=== PATIENT | male | born 1935 | race Hispanic/Latino ===

== ENCOUNTER 2016-06-18 06:11 | Day surgery (SDC) | payer MEDICARE ==
[2016-06-18 06:40] VITALS: BMI 23.3
--- NOTE | 2016-06-18 07:55 | CP.SDSHP ---
Same Day Surgery H & P - History Proposed Procedure: COLONSCOPY Pre-Op Diagnosis: SEE NOTES - Previous Medical/Surgical History Neuro: Backaches Misc: Other Pain: 6.Severe Pain - Allergies Allergies: Allergies No Known Allergies Allergy (Verified 05/23/16 10:12) - Physical Exam General Appearance: N Mental Status: Alert & Oriented x3 Neuro: WNL Heart: WNL Lungs: Other GI: WNL - {Optional Preform as Required} Breast: WNL Abdomen: Other Rectal: Other Integument: WNL : WNL Ortho: Other ENT: WNL - Impression Pt. Evaluated Today:Candidate for Anesthesia & Procedure: Yes - Date & Time Time: 07:55 Short Stay Discharge - Short Stay Discharge Admitting Diagnosis/Reason for Visit: RECTAL BLEEDING Disposition: HOME/ ROUTINE
[2016-06-18] MEDS ORDERED: Belladonna-Phenobarbital PO STA ×2 (07:56→09:07)
[2016-06-18] MEDS ORDERED: Pantoprazole 40 mg EC Tab PO STA ×2 (07:57→09:07)
[2016-06-19 15:49] VITALS: BP 106/75; PULSE 69; RESP 18; TEMP 97.4; O2SAT 100
== END 2016-06-18 09:15 | disposition home or self-care (01) ==
LOC: C.ENDO 06:11
PROVIDERS: ATTEND Specialist
DX: D12.4 Benign neoplasm of descending colon (principal); K57.30 Diverticulosis of large intestine without perforation or abscess without bleeding; K64.8 Other hemorrhoids; K62.5 Hemorrhage of anus and rectum; R10.84 Generalized abdominal pain; R19.5 Other fecal abnormalities; R19.4 Change in bowel habit

== ENCOUNTER 2017-02-08 14:34 | Inpatient (IN) | payer MEDICARE ==
[2017-02-08 14:45] VITALS: BMI 24.1
--- NOTE | 2017-02-08 16:19 | C.PDOC ---
History Of Present Illness Patient is an 81 y/o male who presents to the ED with complaints of left lower facial numbness and difficulty walking for the last 4 days. Patient reports that symptoms have improved since onset, but admits symptoms are similar to and unchanged from a prior stroke. Since stroke, patient reports walking off balance intermittently as it resolves shortly after onset. Patient notes left sided numbness has resolved since onset. Denies any other associated symptoms. L LOWER FACIAL NUMBNESS DIFFICULTY WALKING 4 DAYS AGO, NOW IMPROVED. PS "SIM TO WHEN I HAD A PRIOR STROKE". L SIDED NUMBNESS, NOW RESOLVED X 4 DAYS. PS W INTERMIT "WALKING OFF BALANCE" SINCE PRIOR STROKE. CURRENT SX UNCH FROM PRIOR. "I SOMETIMES WALK OFF BALANCE BUT THEN GOES AWAY". NO OTHER ASSOC SX EXAM NAD NEURO SEE NIH. UNABLE TO TANDEM WALK, BUT NO DEFICIT W FINGER/NOSE GAIT WNL REMAINDER NEG Chief Complaint (Nursing): Weakness/Neurological Deficit History Per: Patient History/Exam Limitations: no limitations Onset/Duration Of Symptoms: Days (4 days) Current Symptoms Are (Timing): Still Present Recent travel outside of the [place]: No Past Medical History Reviewed: Historical Data, Nursing Documentation, Vital Signs Vital Signs: Last Vital Signs Temp 97.6 F 02/08/17 14:47 Pulse 81 02/08/17 14:47 Resp 17 02/08/17 14:47 BP 159/60 H 02/08/17 14:47 Pulse Ox 97 02/08/17 17:58 - Medical History PMH: Anemia, Diverticulitis, HTN, Malignancy (Left Shoulder Lymphoma) Denies: Chronic Kidney Disease Surgical History: Cholecystectomy - [facility] Procedures ESOPHAGOGASTRODUODENOSCOPY [EGD] W/CLOSED BIOPSY (04/20/13) FLUOROSCOPY OF GALLBLADDER USING LOW OSMOLAR CONTRAST (04/18/16) ING HERNIA REP-GRAFT NOS (09/26/12) OTHER ENDOSCOPY OF SM INTEST (08/27/14) PACKED CELL TRANSFUSION (09/26/12) RESECTION OF GALLBLADDER, PERCUTANEOUS ENDOSCOPIC APPROACH (04/18/16) Family History: States: Unknown Family Hx - Social History Hx Tobacco Use: No Hx Alcohol Use: Yes Hx Substance Use: No - Immunization History Hx Tetanus Toxoid Vaccination: No Hx Influenza Vaccination: No Hx Pneumococcal Vaccination: No Review Of Systems Neurological: Positive for: Numbness (left lower side of face, has since resolved), Incoordination (difficulty walking) Physical Exam - Physical Exam Appears: No Acute Distress Oral Mucosa: Moist Chest: Symmetrical Cardiovascular: Rhythm Regular, No Murmur Respiratory: Normal Breath Sounds, No Rales, No Rhonchi, No Wheezing Gastrointestinal/Abdominal: Soft, No Tenderness Neurological/Psych: Other (no deficit with finger/nose; unable to tandem walk. See NIH. ) Gait: Other (within normal limits) ED Course And Treatment - Laboratory Results Result Diagrams: 02/08/17 16:37 02/08/17 16:37 ECG: Interpreted By Ak ECG Rhythm: Sinus Rhythm (normal) ECG Interpretation: Abnormal Rate From EC (bpm) O2 Sat by Pulse Oximetry: 97 - Radiology CXR: Interpreted by Ak CXR Interpretation: Yes: No Acute Disease - CT Scan/US Head Other Rad Studies (CT/US): Interpreted By Ak CT/US Interpretation: IMPRESSION: 1. Chronic microvascular ischemic changes. 2. Mild cerebellar atrophy. 3. Mucosal thickening of the ethmoid air cells. If focal neurological deficit persists, consider MRI. - Physician Consult Information Time Consulting Physician Contacted: 17:40 Physician Contacted: Nelli Robledo NIHSS Stroke Scale - Date/Time Evaluation Performed Date Performed: 02/08/17 Time Performed: 16:16 When Was NIHSS Performed: Baseline - How Severe is the Stroke Level of Consciousness: 0=Alert LOC to Questions: 0=Both comments correct LOC to commands: 0=Obeys both correctly Best Gaze: 0=Normal Visual: 0=No visual loss Facial: 0=Normal Motor Arm - Left: 0=No drift Motor Arm - Right: 0=No drift Motor Leg - Left: 0=No drift Motor Leg - Right: 0=No drift Limb Ataxia: 0=Absent Sensory: 0=Normal Best Language: 0=No aphasia Dysarthia: 0=Normal articulation Extinction & Inattention (Neglect): 0=Normal, no object Score: 0 Progress - Re-Evaluation Re-evaluation Note: 02/08/17 17:56 D/W DR ROBLEDO C/F PMD WILL ADMIT NO RECUR SX SINCE PRIOR EVAL VSS - Data Reviewed Data Reviewed: Lab, Diagnostic imaging, EKG, Old records Medical Decision Making Medical Decision Making: Plan: * EKG * CT head * CXR * blood work Disposition Counseled Patient/Family Regarding: Studies Performed, Diagnosis - Disposition Disposition: HOSPITALIZED Disposition Time: 17:58 Condition: STABLE Forms: [facility] (Palestinian) - Clinical Impression Clinical Impression: TIA (transient ischemic attack) - Scribe Statement The provider has reviewed the documentation as recorded by the Scribe Jia Rankin All medical record entries made by the Scribe were at my direction and personally dictated by me. I have reviewed the chart and agree that the record accurately reflects my personal performance of the history, physical exam, medical decision making, and the department course for this patient. I have also personally directed, reviewed, and agree with the discharge instructions and disposition. Decision To Admit - Pt Status Changed To: Hospital Disposition Of: Observation - . Bed Request Type: Telemetry Admitting Physician: Nelli Robledo Patient Diagnosis: TIA (transient ischemic attack)
[2017-02-08 16:40] LABS: BASO % 0.3 % (0.0-2.0); EOS % 0.6 % (0.0-4.0); HEMATOCRIT 38.6 % (35.0-51.0); LYMPH # 0.9 K/uL (1.0-4.3); LYMPH % 11.7 % (20.0-40.0); MEAN CELL VOLUME 104.4 fL (80.0-94.0); MEAN CORPUSCULAR HEMOGLOBIN 34.4 pg (27.0-31.0); MEAN PLATELET VOLUME 9.6 fL (7.2-11.7); MONO # 0.6 K/uL (0.0-0.8); MONO % 8.4 % (0.0-10.0); WHITE BLOOD COUNT 7.3 K/uL (4.8-10.8)
[2017-02-08 16:56] LABS: BLOOD UREA NITROGEN 21 mg/dL (9-20); CALCIUM 9.2 mg/dl (8.6-10.4); CARBON DIOXIDE 24 mmol/L (22-30); CHLORIDE 98 mmol/L (98-107); GFR AFRICAN-AMERICAN > 60; GLUCOSE,RANDOM 81 mg/dL (75-110); POTASSIUM 4.1 mmol/L (3.6-5.2); SODIUM 135 mmol/L (132-148)
--- NOTE | 2017-02-08 17:13 | CT ---
PROCEDURE: CT HEAD WITHOUT CONTRAST. HISTORY: Left facial numbness. Unsteady gait. COMPARISON: 08/27/2014 TECHNIQUE: Axial computed tomography images were obtained through the head/brain without intravenous contrast. Radiation dose: Total exam DLP = 762 mGy-cm. This CT exam was performed using one or more of the following dose reduction techniques: Automated exposure control, adjustment of the mA and/or kV according to patient size, and/or use of iterative reconstruction technique. FINDINGS: HEMORRHAGE: No intracranial hemorrhage. BRAIN: No mass effect or edema. Scattered focal lucencies in the subcortical and periventricular white matter suggestive for chronic microvascular ischemic change. Mild cerebellar atrophy. VENTRICLES: Unremarkable. No hydrocephalus. CALVARIUM: Unremarkable. PARANASAL SINUSES: Mucosal thickening of the ethmoid air cells. MASTOID AIR CELLS: Unremarkable as visualized. No inflammatory changes. OTHER FINDINGS: None. IMPRESSION: Chronic microvascular ischemic changes. Mild cerebellar atrophy. Mucosal thickening of the ethmoid air cells. If focal neurologic deficit persists, consider MRI.
--- NOTE | 2017-02-08 17:51 | RAD ---
HISTORY: Left facial numbness. COMPARISON: 04/18/2016 TECHNIQUE: Chest PA and lateral FINDINGS: LUNGS: Prominent patchy increased markings at the left lung base laterally may represent prominent epicardial fat pad versus mild atelectasis. Diffuse increased interstitial lung markings. Right hilar prominence. Upper lobe granulomatous changes. Right chest wall port with tip extending into the right atrium. Rounded density at the proximal aspect of the port in the right upper to mid lung zone is likely related to device as opposed to a nodular density within the lungs. Clinical correlation. PLEURA: No significant pleural effusion identified. No pneumothorax apparent. CARDIOVASCULAR: Normal. OSSEOUS STRUCTURES: Deformity of the left clavicle. Degenerative changes in the spine. VISUALIZED UPPER ABDOMEN: Normal. OTHER FINDINGS: None. IMPRESSION: Prominent patchy increased markings at the left lung base laterally may represent prominent epicardial fat pad versus mild atelectasis. Diffuse increased interstitial lung markings. Right hilar prominence. Upper lobe granulomatous changes. Right chest wall port with tip extending into the right atrium. Rounded density at the proximal aspect of the port in the right upper to mid lung zone is likely related to device as opposed to a nodular density within the lungs. Clinical correlation.
--- NOTE | 2017-02-08 19:52 | CP.PCM.HP ---
History of Present Illness - History of Present Illness History of Present Illness: Patient is an 81 y/o male who presents to the ED with complaints of left lower facial numbness and difficulty walking for the last 4 days. Patient reports that symptoms have improved since onset, but admits symptoms are similar to and unchanged from a prior stroke. Since stroke, patient reports walking off balance intermittently as it resolves shortly after onset. Patient notes left sided numbness has resolved since onset. PT HAS PMD , AND DID NOT SEEK MEDICAL ADVICE IN ER NEURO W/U WAS NEG Present on Admission - Present on Admission Any Indicators Present on Admission: No Review of Systems - Constitutional Constitutional: absent: As Per HPI, Anorexia, Chills, Daytime Sleepiness, Excessive Sweating, Fatigue, Fever, Frequent Falls, Headache, Increased Appetite , Lethargy, Malaise, Night Sweats, Snoring, Sleep Apnea, Weight Gain, Weight Loss, Weakness, Other - EENT Eyes: absent: As Per HPI, Blind Spots, Blurred Vision, Change in Vision, Decreased Night Vision, Diplopia, Discharge, Dry Eye, Exophthalmos, Floaters, Irritation, Itchy Eyes, Loss of Peripheral Vision, Pain, Photophobia, Requires Corrective Lenses, Sees Flashes, Spots in Vision, Tunnel Vision, Other Visual Disturbances, Loss of Vision, Other Ears: absent: As Per HPI, Decreased Hearing, Ear Discharge, Ear Pain, Tinnitus, Abnormal Hearing, Disequilibrium, Dizziness, Other Nose/Mouth/Throat: absent: As Per HPI, Epistaxis, Nasal Congestion, Nasal Discharge, Nasal Obstruction, Nasal Trauma, Nose Pain, Post Nasal Drip, Sinus Pain, Sinus Pressure, Bleeding Gums, Change in Voice, Dental Pain, Dry Mouth, Dysphagia, Halitosis, Hoarsness, Lip Swelling, Mouth Lesions, Mouth Pain, Odynophagia, Sore Throat, Throat Swelling, Tongue Swelling, Facial Pain, Neck Pain, Neck Mass, Other - Cardiovascular Cardiovascular: absent: As Per HPI, Acrocyanosis, Chest Pain, Chest Pain at Rest , Chest Pain with Activity, Claudication, Diaphoresis, Dyspnea, Dyspnea on Exertion, Edema, Irregular Heart Rhythm, Pain Radiating to Arm/Neck/Jaw, Leg Edema, Leg Ulcers, Lightheadedness, Orthopnea, Palpitations, Paroxysmal Nocturnal Dyspnea, Pedal Edema, Radiating Pain, Rapid Heart Rate, Slow Heart Rate, Syncope, Other - Respiratory Respiratory: absent: As Per HPI, Cough, Dyspnea, Hemoptysis, Dyspnea on Exertion , Wheezing, Snoring, Stridor, Pain on Inspiration, Chest Congestion, Excessive Mucous Production, Change in Mucous Color, Pain with Coughing, Other - Gastrointestinal Gastrointestinal: absent: As Per HPI, Abdominal Pain, Belching, Bloating, Change in Bowel Habits, Change in Stool Character, Coffee Ground Emesis, Constipation, Cramping, Diarrhea, Dyspepsia, Dysphagia, Early Satiety, Excessive Flatus, Fecal Incontinence, Heartburn, Hematemesis, Hematochezia, Loose Stools, Melena, Nausea, Odynophagia, Temesmus, Vomiting, Other - Genitourinary Genitourinary: absent: As Per HPI, Change in Urinary Stream, Difficulty Urinating, Dysuria, Flank Pain, Hematuria, Pyuria, Nocturia, Urinary Incontinence, Urinary Frequency, Urinary Hesitance, Urinary Urgency, Voiding Freq/Small Amts, Freq UTI, Hx Renal/Bladder Calculi, Hx /Renal Surgery, Bladder Distension, Other - Musculoskeletal Musculoskeletal: absent: As Per HPI, Abnormal Gait, Arthralgias, Atrophy, Back Pain, Deformity, Joint Swelling, Limited Range of Motion, Loss of Height, Muscle Cramps, Muscle Weakness, Myalgias, Neck Pain, Numbness, Radiating Pain into Limb, Stiffness, Tingling, Other - Neurological Neurological: Numbness, Lack of Coordination. absent: As Per HPI, Abnormal Gait , Abnormal Hearing, Abnormal Movements, Abnormal Speech, Behavioral Changes, Burning Sensations, Confusion, Convulsions, Disequilibrium, Dizziness, Focal Weakness, Frequent Falls, Headaches, Loss of Vision, Memory Loss, Paresthesias, Radicular Pain, Restless Legs, Sensory Deficit, Syncope, Tingling, Tremor, Vertigo, Weakness, Other Visual Disturbances, Other - Endocrine Endocrine: absent: As Per HPI, Change in Body Appearance, Change in Libido, Cold Intolorance, Deepening of Voice, Excessive Sweating, Fatigue, Flushing, Heat Intolorance, Increase in Ring/Shoe/Hat Size, Palpitations, Polydipsia, Polyphagia, Polyuria, Other Past Patient History - Infectious Disease Hx of Infectious Diseases: None - Tetanus Immunizations Tetanus Immunization: Unknown - Past Medical History & Family History Past Medical History?: Yes - Past Social History Smoking Status: Former Smoker - CARDIAC Hx Hypertension: Yes - PULMONARY Hx Respiratory Disorders: No - NEUROLOGICAL Hx Neurological Disorder: Yes HX Cerebrovascular Accident: Yes (2014) - HEENT Hx HEENT Problems: No - RENAL Hx Chronic Kidney Disease: No - ENDOCRINE/METABOLIC Hx Endocrine Disorders: No - HEMATOLOGICAL/ONCOLOGICAL Hx Anemia: Yes - INTEGUMENTARY Hx Dermatological Problems: No - MUSCULOSKELETAL/RHEUMATOLOGICAL Hx Musculoskeletal Disorders: No - GASTROINTESTINAL Hx Diverticulitis: Yes - GENITOURINARY/GYNECOLOGICAL Hx Genitourinary Disorders: Yes Hx Prostate Cancer: Yes (WITH SEED IMPLANTS) - PSYCHIATRIC Hx Substance Use: No - SURGICAL HISTORY Hx Cholecystectomy: Yes - ANESTHESIA Hx Anesthesia: Yes Hx Anesthesia Reactions: No Hx Malignant Hyperthermia: No Meds Allergies/Adverse Reactions: Allergies Allergy/AdvReac Type Severity Reaction Status Date / Time No Known Allergies Allergy Verified 02/08/17 14:42 Physical Exam - Head Exam Head Exam: ATRAUMATIC, NORMAL INSPECTION, NORMOCEPHALIC - Eye Exam Eye Exam: EOMI, Normal appearance, PERRL Pupil Exam: NORMAL ACCOMODATION, PERRL - ENT Exam ENT Exam: Mucous Membranes Moist, Normal Exam - Neck Exam Neck exam: Positive for: Normal Inspection - Respiratory Exam Respiratory Exam: Clear to Auscultation Bilateral, NORMAL BREATHING PATTERN - Cardiovascular Exam Cardiovascular Exam: REGULAR RHYTHM - GI/Abdominal Exam GI & Abdominal Exam: Normal Bowel Sounds, Soft. absent: Tenderness - Extremities Exam Extremities exam: Positive for: normal inspection - Back Exam Back exam: NORMAL INSPECTION - Neurological Exam Neurological exam: Abnormal Gait, Alert, CN II-XII Intact, Oriented x3, Reflexes Normal Results - Vital Signs Recent Vital Signs: Last Vital Signs Temp 97.8 F 02/08/17 18:19 Pulse 73 02/08/17 18:19 Resp 16 02/08/17 18:19 BP 139/84 02/08/17 18:19 Pulse Ox 97 02/08/17 18:19 - Labs Result Diagrams: 02/09/17 08:44 02/09/17 08:44 Labs: Laboratory Results - last 24 hr 02/08/17 02/08/17 16:37 16:37 WBC 7.3 RBC 3.70 L Hgb 12.7 Hct 38.6 MCV 104.4 H MCH 34.4 H MCHC 33.0 RDW 15.0 H Plt Count 167 MPV 9.6 Neut % (Auto) 79.0 H Lymph % (Auto) 11.7 L Luce % (Auto) 8.4 Eos % (Auto) 0.6 Baso % (Auto) 0.3 Neut # 5.8 Lymph # 0.9 L Luce # 0.6 Eos # 0.0 Baso # 0.0 Sodium 135 Potassium 4.1 Chloride 98 Carbon Dioxide 24 Anion Gap 17 BUN 21 H Creatinine 1.2 Est GFR ( Amer) > 60 Est GFR (Non-Af Amer) 58 Random Glucose 81 Calcium 9.2 Assessment & Plan (1) TIA (transient ischemic attack) Status: Acute Comment: NEURO EVAL. ?MRI (2) Ataxia Status: Chronic (3) HTN (hypertension) Status: Chronic (4) Hodgkin disease Status: Chronic
[2017-02-09 08:51] LABS: BASO # 0.1 K/uL (0.0-0.2); BASO % 1.5 % (0.0-2.0); EOS # 0.2 K/uL (0.0-0.7); EOS % 4.2 % (0.0-4.0); HEMATOCRIT 40.2 % (35.0-51.0); LYMPH % 19.4 % (20.0-40.0); MEAN CELL VOLUME 105.4 fL (80.0-94.0); MEAN CORPUSCULAR HGB CONC 32.2 g/dL (33.0-37.0); MEAN PLATELET VOLUME 9.3 fL (7.2-11.7); MONO # 0.6 K/uL (0.0-0.8); MONO % 11.5 % (0.0-10.0); NRBC % 0.1 % (0.0-2.0); RED CELL DISTRIBUTION WIDTH 15.2 % (11.5-14.5); WHITE BLOOD COUNT 5.2 K/uL (4.8-10.8)
[2017-02-09 09:07] LABS: ALB/GLOB RATIO 1.9 (1.0-2.1); ALKALINE PHOSPHATASE 71 U/L (38-126); ALT/SGPT 28 U/L (21-72); AST/SGOT 29 U/L (17-59); BILIRUBIN,TOTAL 1.1 mg/dL (0.2-1.3); BLOOD UREA NITROGEN 24 mg/dL (9-20); CALCIUM 9.1 mg/dl (8.6-10.4); CARBON DIOXIDE 26 mmol/L (22-30); CHLORIDE 98 mmol/L (98-107); GFR AFRICAN-AMERICAN > 60; GLUCOSE,RANDOM 124 mg/dL (75-110); POTASSIUM 3.9 mmol/L (3.6-5.2); SODIUM 137 mmol/L (132-148); TOTAL PROTEIN 6.4 g/dL (6.3-8.3)
[2017-02-09] MEDS: diltiaZEM 240 mg/24 Hours CD Cap PO SCH (09:09)
--- NOTE | 2017-02-09 14:51 | CP.PCM.PN ---
Subjective - Date & Time of Evaluation Date of Evaluation: 02/09/17 Time of Evaluation: 14:50 - Subjective Subjective: NO NEW FINDINGS Objective - Vital Signs/Intake and Output Vital Signs (last 24 hours): Temp Pulse Resp BP Pulse Ox 97.7 F 83 20 146/83 99 02/09/17 07:00 02/09/17 07:00 02/09/17 07:00 02/09/17 07:00 02/09/17 07:00 - Medications Medications: Current Medications Aspirin (Aspirin) 325 mg PO DAILY [facility] Last Admin: 02/09/17 09:10 Dose: 325 mg Diltiazem HCl (Cardizem Cd) 240 mg PO DAILY [facility] Last Admin: 02/09/17 09:09 Dose: 240 mg Famotidine (Pepcid) 20 mg PO DAILY [facility] Last Admin: 02/09/17 09:10 Dose: 20 mg Pneumococcal Polyvalent Vaccine (Pneumovax 23 Vaccine) 0.5 ml IM .ONCE ONE Stop: 02/11/17 10:01 - Labs Labs: 02/09/17 08:44 02/09/17 08:44 Assessment and Plan (1) TIA (transient ischemic attack) Status: Acute (2) Ataxia Status: Chronic (3) HTN (hypertension) Status: Chronic (4) Hodgkin disease Status: Chronic
--- NOTE | 2017-02-09 17:29 | CP.PCM.CON ---
History of Present Illness - History of Present Illness History of Present Illness: Mr. Silva is an 81-year-old man with a past medical history of hypertension and skin cancer who states that he had a stroke in the past that had resulted in balance difficulty and some left sided paresthesias, but at baseline he is back to normal. The patient presented to the ED after a 4 day duration of left facial numbness and feeling that whenever he stands up and tries to ambulate, he leans over to the right. He denied headache, visual changes, weakness, other sensory deficits, chest pain, SOB, or abdominal pain. Review of Systems - Review of Systems All systems: reviewed and no additional remarkable complaints except Past Patient History - Infectious Disease Hx of Infectious Diseases: None - Tetanus Immunizations Tetanus Immunization: Unknown - Past Medical History & Family History Past Medical History?: Yes - Past Social History Smoking Status: Former Smoker - CARDIAC Hx Hypertension: Yes - PULMONARY Hx Respiratory Disorders: No - NEUROLOGICAL Hx Neurological Disorder: Yes HX Cerebrovascular Accident: Yes (2014) - HEENT Hx HEENT Problems: No - RENAL Hx Chronic Kidney Disease: No - ENDOCRINE/METABOLIC Hx Endocrine Disorders: No - HEMATOLOGICAL/ONCOLOGICAL Hx Anemia: Yes - INTEGUMENTARY Hx Dermatological Problems: No - MUSCULOSKELETAL/RHEUMATOLOGICAL Hx Musculoskeletal Disorders: No - GASTROINTESTINAL Hx Diverticulitis: Yes - GENITOURINARY/GYNECOLOGICAL Hx Genitourinary Disorders: Yes Hx Prostate Cancer: Yes (WITH SEED IMPLANTS) - PSYCHIATRIC Hx Substance Use: No - SURGICAL HISTORY Hx Cholecystectomy: Yes - ANESTHESIA Hx Anesthesia: Yes Hx Anesthesia Reactions: No Hx Malignant Hyperthermia: No Meds Allergies/Adverse Reactions: Allergies Allergy/AdvReac Type Severity Reaction Status Date / Time No Known Allergies Allergy Verified 02/08/17 14:42 - Medications Medications: Current Medications Aspirin (Aspirin) 325 mg PO DAILY [facility] Last Admin: 02/09/17 09:10 Dose: 325 mg Diltiazem HCl (Cardizem Cd) 240 mg PO DAILY [facility] Last Admin: 02/09/17 09:09 Dose: 240 mg Famotidine (Pepcid) 20 mg PO DAILY [facility] Last Admin: 02/09/17 09:10 Dose: 20 mg Pneumococcal Polyvalent Vaccine (Pneumovax 23 Vaccine) 0.5 ml IM .ONCE ONE Stop: 02/11/17 10:01 Physical Exam - Constitutional Appears: Cachectic - Head Exam Head Exam: ATRAUMATIC, NORMAL INSPECTION, NORMOCEPHALIC - Eye Exam Eye Exam: EOMI, Normal appearance, Nystagmus, PERRL Additional comments: Nystagmus on RLG - ENT Exam ENT Exam: Mucous Membranes Moist, Normal Exam - Neck Exam Neck exam: Positive for: Normal Inspection - Respiratory Exam Respiratory Exam: Clear to Auscultation Bilateral, NORMAL BREATHING PATTERN - Cardiovascular Exam Cardiovascular Exam: REGULAR RHYTHM, +S1, +S2 - GI/Abdominal Exam GI & Abdominal Exam: Normal Bowel Sounds, Soft. absent: Tenderness - Rectal Exam Rectal Exam: Deferred - Extremities Exam Extremities exam: Positive for: normal inspection - Back Exam Back exam: NORMAL INSPECTION - Neurological Exam Neurological exam: Abnormal Gait, Alert, CN II-XII Intact, Oriented x3, Reflexes Normal Additional comments: NIHSS = 1 for left facial numbness - Psychiatric Exam Psychiatric exam: Normal Affect, Normal Mood - Skin Skin Exam: Dry, Intact, Normal Color, Warm Results - Vital Signs Recent Vital Signs: Last Vital Signs Temp 97.7 F 02/09/17 07:00 Pulse 83 02/09/17 07:00 Resp 20 02/09/17 07:00 BP 146/83 02/09/17 07:00 Pulse Ox 99 02/09/17 07:00 - Labs Result Diagrams: 02/09/17 08:44 02/09/17 08:44 Labs: Laboratory Results - last 24 hr 02/09/17 02/09/17 08:44 08:44 WBC 5.2 RBC 3.82 L Hgb 13.0 Hct 40.2 MCV 105.4 H MCH 34.0 H MCHC 32.2 L RDW 15.2 H Plt Count 163 MPV 9.3 Neut % (Auto) 63.4 Lymph % (Auto) 19.4 L [place] % (Auto) 11.5 H Eos % (Auto) 4.2 H Baso % (Auto) 1.5 Neut # 3.3 Lymph # 1.0 [place] # 0.6 Eos # 0.2 Baso # 0.1 Sodium 137 Potassium 3.9 Chloride 98 Carbon Dioxide 26 Anion Gap 17 BUN 24 H Creatinine 1.2 Est GFR ( Amer) > 60 Est GFR (Non-Af Amer) 58 Random Glucose 124 H Calcium 9.1 Total Bilirubin 1.1 AST 29 ALT 28 Alkaline Phosphatase 71 Total Protein 6.4 Albumin 4.2 Globulin 2.2 Albumin/Globulin Ratio 1.9 - Imaging and Cardiology CT scan - head Status: Image reviewed by me, Report reviewed by me (No acute findings. ) Assessment & Plan (1) TIA (transient ischemic attack) Assessment and Plan: Symptoms of facial numbness are chronic and he has occasional balance difficulty. These symptoms along with a CT scan that does not show a stroke ( symptoms have been around for 4 days now and should show on CT by now), the patient likely has small vessel disease or may have another underlying brain lesion that may not be vascular in origin. However, I recommend the followin. Telemetry 2. MRI of the brain with and without contrast 3. Aspirin 81 mg daily 4. Echocardiogram with bubble study 5. PT/OT eval and treatment 6. Check lipid panel, HbA1c, B12, folate, TSH/T3/T4, and vitamin D levels 7. Fluids with NS at 100 mL/hr 8. Permissive hypertension for the next 24 hours 9. DVT Px 10. Case management consult Thank you. Status: Acute Priority: High
[2017-02-09 19:12] LABS: CHOLESTEROL 173 mg/dL (0-199)
--- NOTE | 2017-02-10 10:31 | CP.PCM.PN ---
Subjective - Date & Time of Evaluation Date of Evaluation: 02/10/17 Time of Evaluation: 10:28 - Subjective Subjective: Mr. Silva was seen and examined at the bedside. He is alert, oriented in all spheres. He denies any headache, dizziness, lightheadedness, nausea, or vomiting. He claims of feeling minimal nausea over the weekend, with no vomiting noted. There was no untoward events overnight. Objective - Vital Signs/Intake and Output Vital Signs (last 24 hours): Temp Pulse Resp BP Pulse Ox 97.6 F 76 18 133/82 96 02/10/17 07:00 02/10/17 08:25 02/10/17 07:00 02/10/17 07:00 02/10/17 07:00 Intake and Output: 02/10/17 02/10/17 06:59 18:59 Intake Total 240 Balance 240 - Medications Medications: Current Medications Aspirin (Ecotrin) 81 mg PO DAILY [facility] Last Admin: 02/09/17 18:34 Dose: 81 mg Diltiazem HCl (Cardizem Cd) 240 mg PO DAILY [facility] Last Admin: 02/09/17 09:09 Dose: 240 mg Enoxaparin Sodium (Lovenox) 40 mg SC DAILY [facility] Famotidine (Pepcid) 20 mg PO DAILY [facility] Last Admin: 02/09/17 09:10 Dose: 20 mg Pneumococcal Polyvalent Vaccine (Pneumovax 23 Vaccine) 0.5 ml IM .ONCE ONE Stop: 02/11/17 10:01 Rosuvastatin Calcium (Crestor) 5 mg PO [facility] Last Admin: 02/09/17 21:58 Dose: 5 mg - Labs Labs: 02/09/17 08:44 02/09/17 08:44 - Constitutional Appears: No Acute Distress - Head Exam Head Exam: ATRAUMATIC - Neurological Exam Neurological Exam: Alert, Awake, CN II-XII Intact, Oriented x3 Neuro motor strength exam: Left Upper Extremity: 5, Right Upper Extremity: 5, Left Lower Extremity: 5, Right Lower Extremity: 5 Additional comments: He is alert, oriented in all spheres, able to follow simplke commands. Sensation remains intact. Assessment and Plan (1) TIA (transient ischemic attack) Assessment & Plan: Case discussed with Dr. Leach, follow up MRI of the brain without contrast and echocardiogram with bubble study. Recommends PT/ OT eval and treat. Status: Acute
[2017-02-10] MEDS: diltiaZEM 240 mg/24 Hours CD Cap PO SCH (10:48)
[2017-02-10] MEDS: Enoxaparin 40 mg Syringe SC SCH (10:48)
--- NOTE | 2017-02-10 12:09 | VASCLAB ---
PROCEDURE: HISTORY: tia COMPARISON: None available. TECHNIQUE: Grayscale and duplex Doppler evaluation of the cervical carotid and vertebral arteries were performed. The common carotid, carotid bifurcations and cervical Internal Carotid Artery (ICA) and proximal External Carotid Artery (ECA) were evaluated. The vertebral arteries were evaluated for gross patency and flow direction. Report prepared by Cam Tomas, BS, RVT FINDINGS: RIGHT CAROTID ARTERIES: 1. Common Carotid Artery: No significant focal plaque formation of the right common carotid artery. Maximum Peak Systolic velocity: 62 cm/sec: End-diastolic velocity 14 cm/sec. 2. Carotid Bifurcation: plaque formation. Maximum Peak Systolic velocity: 48 cm/sec: End-diastolic velocity 12 cm/sec. 3. Internal Carotid Artery: Plaque description: 3.1. Proximal Segment: Peak systolic velocity 59 cm/sec: End-diastolic velocity 17 cm/sec - % stenosis 0-15% 3.2. Middle Segment: Peak systolic velocity 95 cm/sec: End-diastolic velocity 29 cm/sec - % stenosis 0-15% 3.3. Distal Segment: Peak systolic velocity 89 cm/sec: End-diastolic velocity 25 cm/sec - % stenosis 0-15% 4. External Carotid Artery: No significant focal plaque formation. Peak systolic velocity 68 cm/sec 5. ICA/CCA Ratio: 1.5 LEFT CAROTID ARTERIES: 1. Common Carotid Artery: No significant focal plaque formation of the left common carotid artery. Maximum Peak Systolic velocity: 79 cm/sec: End-diastolic velocity 18 cm/sec. 2. Carotid Bifurcation: plaque formation. Maximum Peak Systolic velocity: 112 cm/sec: End-diastolic velocity 7 cm/sec. 3. Internal Carotid Artery: Plaque description: 3.1. Proximal Segment: Peak systolic velocity 71 cm/sec: End-diastolic velocity 17 cm/sec - % stenosis 0-15% 3.2. Middle Segment: Peak systolic velocity 106 cm/sec: End-diastolic velocity 24 cm/sec - % stenosis 0-15% 3.3. Distal Segment: Peak systolic velocity 53 cm/sec: End-diastolic velocity 13 cm/sec - % stenosis 0-15% 4. External Carotid Artery: No significant focal plaque formation. Peak systolic velocity 112 cm/sec 5. ICA/CCA Ratio: 1.3 VERTEBRAL ARTERIES: 1. Right Vertebral Artery: The right vertebral artery flow direction is antegrade. 2. Left Vertebral Artery: The left vertebral artery flow direction is antegrade. OTHER FINDINGS: 1. Right Brachial Blood pressure: 160 mmHg. 2. Left Brachial Blood pressure: 160 mmHg. IMPRESSION: RIGHT: Duplex scan does not suggest hemodynamically significant stenosis of the right extracranial carotid arteries. LEFT: Duplex scan does not suggest hemodynamically significant stenosis of the left extracranial carotid arteries.
--- NOTE | 2017-02-10 13:57 | CP.PCM.PN ---
Subjective - Date & Time of Evaluation Date of Evaluation: 02/10/17 Time of Evaluation: 13:56 - Subjective Subjective: CHIEF COMPLAINTS TODAY : NO NEW SYMPTOMS ROS. HEENT : N. Resp : No cough, wheezing ,pleuritic CP ,or hemoptysis Cardio : No anginal CP, PND, orthopnea, palpitation GI : No abd.pain, n/v ,diarrhea or GI bleeding . CAR SALESMAN : No headache, vertigo, focal deficit. Musculoskel : No joint swelling , Derm : No rash Psych : Normal affect. Ext : No swelling ,calf pain PE. Pt. is alert awake in no distress. V.S As noted in the chart Head ,ear nose,throat and eyes : Normal. Neck : Supple with normal carotids. Lungs: Clear air entry. Heart : S1 & S2 normal with S4. No murmur. Abd : Soft non tender with normal bowel sounds. Neuro : Moves all ext. with no localized deficit. Ext : No edema with intact pulses.Non tender calves Derm : No rashes or decubitus ulcer. LABS/RADIOLOGY: ASSESSMENT/PLAN : CHECK MRI CHECK ECHO WITH BUBBLE STUDY Objective - Vital Signs/Intake and Output Vital Signs (last 24 hours): Temp Pulse Resp BP Pulse Ox 97.6 F 76 18 133/82 96 02/10/17 07:00 02/10/17 08:25 02/10/17 07:00 02/10/17 07:00 02/10/17 07:00 Intake and Output: 02/10/17 02/10/17 11:59 23:59 Intake Total 240 Balance 240 - Medications Medications: Current Medications Aspirin (Ecotrin) 81 mg PO DAILY [facility] Last Admin: 02/10/17 10:48 Dose: 81 mg Diltiazem HCl (Cardizem Cd) 240 mg PO DAILY [facility] Last Admin: 02/10/17 10:48 Dose: 240 mg Enoxaparin Sodium (Lovenox) 40 mg SC DAILY [facility] Last Admin: 02/10/17 10:48 Dose: 40 mg Famotidine (Pepcid) 20 mg PO DAILY [facility] Last Admin: 02/10/17 10:48 Dose: 20 mg Pneumococcal Polyvalent Vaccine (Pneumovax 23 Vaccine) 0.5 ml IM .ONCE ONE Stop: 02/11/17 10:01 Rosuvastatin Calcium (Crestor) 5 mg PO [facility] Last Admin: 02/09/17 21:58 Dose: 5 mg - Labs Labs: 02/09/17 08:44 02/09/17 08:44 Assessment and Plan (1) TIA (transient ischemic attack) Status: Acute (2) Ataxia Status: Chronic (3) HTN (hypertension) Status: Chronic (4) Hodgkin disease Status: Chronic
[2017-02-10] MEDS ORDERED: Gadodiamide 287 MG/ML VIAL (15ML) IV ONE (16:28)
--- NOTE | 2017-02-10 17:19 | MRI ---
PROCEDURE: MRI BRAIN WITH AND WITHOUT CONTRAST HISTORY: rule out stroke or mets COMPARISON: 06/06/2015 TECHNIQUE: Multiplanar, multisequence MR images of the brain were obtained with and without intravenous contrast enhancement. 12 cc of Omniscan FINDINGS: HEMORRHAGE: None DWI: No evidence of an acute or early subacute infarction. BRAIN PARENCHYMA: No mass,mass effect or edema. Mild chronic microvascular changes in the periventricular white matter. ENHANCEMENT: No abnormal intracranial enhancement. VENTRICLES: Unremarkable. No hydrocephalus. CRANIUM: Unremarkable. ORBITS: Grossly unremarkable. PARANASAL SINUSES/MASTOIDS: Clear VASCULAR SYSTEM: Skull base flow voids intact. OTHER FINDINGS: None . IMPRESSION: No acute intracranial findings
--- NOTE | 2017-02-10 17:27 | MRI ---
PROCEDURE: MR Angiography of the neck without contrast HISTORY: TIA COMPARISON: None available. TECHNIQUE: 3D [id number] angiography of the neck was performed. Rotating maximum intensity projection images of the cervical carotid and vertebral arteries were generated. The origins of the common carotid arteries were not visualized, which is a limitation inherent to the non-contrast time of flight technique. FINDINGS: RIGHT CAROTID ARTERIES: Common Carotid Artery: Normal. Carotid Bifurcation: Normal. Internal Carotid Artery:Normal. External Carotid Artery (proximal branches): Normal. LEFT CAROTID ARTERIES: Common Carotid Artery: Normal. Carotid Bifurcation: Normal. Internal Carotid Artery:Normal. External Carotid Artery (proximal branches): Normal. VERTEBRAL ARTERIES: Right Vertebral Artery: There is a dominant large caliber right vertebral. Left Vertebral Artery: Small thin left vertebral with diminished flow OTHER FINDINGS: None. IMPRESSION: Dominant right vertebral. Small caliber left vertebral. No evidence of carotid stenosis
--- NOTE | 2017-02-10 17:30 | MRI ---
PROCEDURE: Magnetic Resonance Angiography Brain HISTORY: TIA COMPARISON: None available. TECHNIQUE: 3D time of flight MR angiography of the intracranial arteries was performed. Rotating maximum intensity projection images were generated. FINDINGS: INTERNAL CAROTID ARTERIES: Unremarkable. The skull base, petrous, cavernous and supraclinoid segments are bilaterally widely patient. ANTERIOR CEREBRAL ARTERIES: Unremarkable. A1 and A2 segments are widely patent. Smaller distal branches unremarkable, as visualized. MIDDLE CEREBRAL ARTERIES: Unremarkable. M1 and M2 segments are widely patent. Perisylvian branches grossly symmetric. POSTERIOR CIRCULATION: Basilar Artery: Unremarkable. Distal Vertebral Arteries: There is a dominant right vertebral. The left vertebral is small in caliber an appears to terminate in the posterior inferior cerebellar artery. There is no connection to the basilar. Posterior Cerebral Arteries: Unremarkable. Posterior Inferior Cerebellar Arteries: Unremarkable. ANEURYSM/ VASCULAR MALFORMATIONS: None. OTHER FINDINGS: None. IMPRESSION: No occlusion or high-grade stenosis. Small caliber left vertebral that terminates in the posterior inferior cerebellar artery. Dominant right vertebral
--- NOTE | 2017-02-10 18:07 | CARD ---
APPROVED REPORT EKG Measurement Heart [id number] <Conclusion> Normal sinus rhythm Left axis deviation Nonspecific T wave abnormality Abnormal ECG
--- NOTE | 2017-02-10 21:16 | CARD ---
APPROVED REPORT EXAM: Two-dimensional and M-mode echocardiogram with Doppler and color Dopple WITH BUBBLE STUDY Other Information Quality : GoodRhythm : INDICATION CVA/TIA RISK FACTORS Hypertension 2D DIMENSIONS IVSd0.7 (0.7-1.1cm)LVDd5.3 (3.9-5.9cm) PWd0.8 (0.7-1.1cm) M-Mode DIMENSIONS RVDd0.87 (2.1-3.2cm)Left Atrium (MM)3.39 (2.5-4.0cm) IVSd0.80 (0.7-1.1cm)Aortic Root2.98 (2.2-3.7cm) LVDd5.87 (4.0-5.6cm)Aortic Cusp Exc.1.89 (1.5-2.0cm) PWd0.90 (0.7-1.1cm)FS (%) 20 % LVDs4.72 (2.0-3.8cm)LVEF (%)40 (>50%) Mitral Valve MV E Gdfdxhap492.1cm/sMV A Ulplrjjo39.2cm/sE/A ratio1.4 TDI E/Lateral E'0.0E/Medial E'0.0 Tricuspid Valve TR Peak Dgsfrrht854qd/sTR Peak Gr.[id number] <Conclusion> Left ventricle: thickness: normal; size: normal; overall ejection fraction:35%: diastolic filling pressures:elevated Mitral valve: annulus: normal: leaflets: normal: excursion: normal; no significant trans-mitral gradient: moderatencompetence: left atrium: normal Aortic valve: leaflets: normal: excursion: normal; no significant trans-aortic gradient: No significant incompetence: aortic root: normal Right sided Structures:Atrial septal aneurysm; no evidence of shunt Pulmonary valve: normal; no significant incompetence; Tricuspid valve: normal; no significant incompetence: Intra-cardiac hemodynamics: pulmonary systolic pressures: normal; central venous pressures: normal No pericardial effusion
[2017-02-11] MEDS: Enoxaparin 40 mg Syringe SC SCH (09:38)
[2017-02-11] MEDS: diltiaZEM 240 mg/24 Hours CD Cap PO SCH (09:38)
--- NOTE | 2017-02-11 09:40 | CP.PCM.PN ---
Subjective - Date & Time of Evaluation Date of Evaluation: 02/11/17 Time of Evaluation: 09:37 - Subjective Subjective: Mr. alcala was seen and examined at the bedside. He is alert oriented in all spheres. He denies any headache, dizziness, lightheadedness, numbness, nausea, or vomiting. He has been ambulating around the unit with steady gait. MRI and MRA result are within normal limits. There was no untoward events overnight. Objective - Vital Signs/Intake and Output Vital Signs (last 24 hours): Temp Pulse Resp BP Pulse Ox 97.6 F 82 20 133/78 94 L 02/11/17 07:00 02/11/17 08:16 02/11/17 07:00 02/11/17 07:00 02/11/17 07:00 Intake and Output: 02/11/17 02/11/17 06:59 18:59 Intake Total 1140 Balance 1140 - Medications Medications: Current Medications Aspirin (Ecotrin) 81 mg PO DAILY [facility] Last Admin: 02/10/17 10:48 Dose: 81 mg Diltiazem HCl (Cardizem Cd) 240 mg PO DAILY [facility] Last Admin: 02/10/17 10:48 Dose: 240 mg Enoxaparin Sodium (Lovenox) 40 mg SC DAILY [facility] Last Admin: 02/10/17 10:48 Dose: 40 mg Famotidine (Pepcid) 20 mg PO DAILY [facility] Last Admin: 02/10/17 10:48 Dose: 20 mg Pneumococcal Polyvalent Vaccine (Pneumovax 23 Vaccine) 0.5 ml IM .ONCE ONE Stop: 02/11/17 10:01 Rosuvastatin Calcium (Crestor) 5 mg PO [facility] Last Admin: 02/10/17 21:12 Dose: 5 mg - Labs Labs: 02/09/17 08:44 02/09/17 08:44 - Constitutional Appears: No Acute Distress - Head Exam Head Exam: ATRAUMATIC - Neurological Exam Neurological Exam: Alert, Awake, CN II-XII Intact, Oriented x3 Neuro motor strength exam: Left Upper Extremity: 5, Right Upper Extremity: 5, Left Lower Extremity: 5, Right Lower Extremity: 5 Additional comments: Neurological unchanged from previous examination. Assessment and Plan (1) TIA (transient ischemic attack) Assessment & Plan: Case discussed with Dr. Leach, continue all current medical, and occupational therapies. Follow up echocardiogram with bubble study. Status: Acute
[2017-02-11] MEDS ORDERED: Pneumococcal 23-Valent Vaccine IM ONE (10:00)
--- NOTE | 2017-02-11 13:24 | CP.PCM.PN ---
Subjective - Date & Time of Evaluation Date of Evaluation: 02/11/17 Time of Evaluation: 13:24 - Subjective Subjective: CHIEF COMPLAINTS TODAY : NO NEW SYMPTOMS ROS. HEENT : N. Resp : No cough, wheezing ,pleuritic CP ,or hemoptysis Cardio : No anginal CP, PND, orthopnea, palpitation GI : No abd.pain, n/v ,diarrhea or GI bleeding . DATA COMMUNICATIONS ANALYST : No headache, vertigo, focal deficit. Musculoskel : No joint swelling , Derm : No rash Psych : Normal affect. Ext : No swelling ,calf pain PE. Pt. is alert awake in no distress. V.S As noted in the chart Head ,ear nose,throat and eyes : Normal. Neck : Supple with normal carotids. Lungs: Clear air entry. Heart : S1 & S2 normal with S4. No murmur. Abd : Soft non tender with normal bowel sounds. Neuro : Moves all ext. with no localized deficit. Ext : No edema with intact pulses.Non tender calves Derm : No rashes or decubitus ulcer. LABS/RADIOLOGY: ASSESSMENT/PLAN : CHECK MRI CHECK ECHO WITH BUBBLE STUDY Objective - Vital Signs/Intake and Output Vital Signs (last 24 hours): Temp Pulse Resp BP Pulse Ox 97.6 F 67 20 133/78 94 L 02/11/17 07:00 02/11/17 12:08 02/11/17 07:00 02/11/17 07:00 02/11/17 07:00 Intake and Output: 02/11/17 02/11/17 11:59 23:59 Intake Total 240 Balance 240 - Medications Medications: Current Medications Aspirin (Ecotrin) 81 mg PO DAILY [facility] Last Admin: 02/11/17 09:38 Dose: 81 mg Diltiazem HCl (Cardizem Cd) 240 mg PO DAILY [facility] Last Admin: 02/11/17 09:38 Dose: 240 mg Enoxaparin Sodium (Lovenox) 40 mg SC DAILY [facility] Last Admin: 02/11/17 09:38 Dose: 40 mg Famotidine (Pepcid) 20 mg PO DAILY [facility] Last Admin: 02/11/17 09:38 Dose: 20 mg Rosuvastatin Calcium (Crestor) 5 mg PO HS [facility] Last Admin: 02/10/17 21:12 Dose: 5 mg - Labs Labs: 02/09/17 08:44 02/09/17 08:44 Assessment and Plan (1) TIA (transient ischemic attack) Status: Acute (2) Ataxia Status: Chronic (3) HTN (hypertension) Status: Chronic (4) Hodgkin disease Status: Chronic
[2017-02-12 00:33] VITALS: O2SAT 97
[2017-02-12 08:40] VITALS: BP 131/79; RESP 18; TEMP 97.5
--- NOTE | 2017-02-12 08:46 | CP.PCM.PN ---
Subjective - Date & Time of Evaluation Date of Evaluation: 02/12/17 Time of Evaluation: 08:43 - Subjective Subjective: Mr. Silva was seen and examined at the bedside. He is alert, oriented in all spheres. He denies any headache, lightheadedness, numbness, dizziness, nausea or vomiting. He is ambulating with steady gait. He is on NPO for a LAITH scheduled today. He is requesting for possible discharge today. There was no untoward events overnight. Objective - Vital Signs/Intake and Output Vital Signs (last 24 hours): Temp Pulse Resp BP Pulse Ox 97.5 F L 87 18 131/79 97 02/12/17 07:35 02/12/17 07:35 02/12/17 07:35 02/12/17 07:35 02/12/17 07:35 Intake and Output: 02/12/17 02/12/17 06:59 18:59 Intake Total 10 Balance 10 - Medications Medications: Current Medications Aspirin (Ecotrin) 81 mg PO DAILY [facility] Last Admin: 02/11/17 09:38 Dose: 81 mg Diltiazem HCl (Cardizem Cd) 240 mg PO DAILY [facility] Last Admin: 02/11/17 09:38 Dose: 240 mg Enoxaparin Sodium (Lovenox) 40 mg SC DAILY [facility] Last Admin: 02/11/17 09:38 Dose: 40 mg Famotidine (Pepcid) 20 mg PO DAILY [facility] Last Admin: 02/11/17 09:38 Dose: 20 mg Rosuvastatin Calcium (Crestor) 5 mg PO HS [facility] Last Admin: 02/11/17 22:53 Dose: 5 mg - Labs Labs: 02/09/17 08:44 02/09/17 08:44 - Constitutional Appears: No Acute Distress - Head Exam Head Exam: ATRAUMATIC - Neurological Exam Neurological Exam: Alert, Awake, CN II-XII Intact, Normal Gait Neuro motor strength exam: Left Upper Extremity: 5, Right Upper Extremity: 5, Left Lower Extremity: 5, Right Lower Extremity: 5 Additional comments: Neurological unchanged from previous examination. Assessment and Plan (1) TIA (transient ischemic attack) Assessment & Plan: Case discussed with Dr. Leach, follow result of LAITH and continue all current medical regimen. Status: Acute
[2017-02-12] MEDS: diltiaZEM 240 mg/24 Hours CD Cap PO SCH (09:10)
[2017-02-12] MEDS: Enoxaparin 40 mg Syringe SC SCH (09:10)
--- NOTE | 2017-02-12 13:07 | CP.PCM.PN ---
Subjective - Date & Time of Evaluation Date of Evaluation: 02/12/17 Time of Evaluation: 13:06 - Subjective Subjective: PATIENT WAS ADMITTED FOR TIA LIKE SYMPTOMS; AAOX 3, DENIES HEADACHE, SOB, AND CHEST PAIN; AT THE BEDSIDE AND PATIENT WANTS TO GO HOME BEFORE THE HOLIDAY AND NO SIGN OF DISTRESS Objective - Vital Signs/Intake and Output Vital Signs (last 24 hours): Temp Pulse Resp BP Pulse Ox 97.5 F L 87 18 131/79 97 02/12/17 07:35 02/12/17 07:35 02/12/17 07:35 02/12/17 07:35 02/12/17 07:35 Intake and Output: 02/12/17 02/12/17 06:59 18:59 Intake Total 10 Balance 10 - Medications Medications: Current Medications Aspirin (Ecotrin) 81 mg PO DAILY [facility] Last Admin: 02/12/17 09:10 Dose: 81 mg Diltiazem HCl (Cardizem Cd) 240 mg PO DAILY [facility] Last Admin: 02/12/17 09:10 Dose: 240 mg Enoxaparin Sodium (Lovenox) 40 mg SC DAILY [facility] Last Admin: 02/12/17 09:10 Dose: 40 mg Famotidine (Pepcid) 20 mg PO DAILY [facility] Last Admin: 02/12/17 09:10 Dose: 20 mg Rosuvastatin Calcium (Crestor) 5 mg PO HS [facility] Last Admin: 02/11/17 22:53 Dose: 5 mg - Labs Labs: 02/09/17 08:44 02/09/17 08:44 - Respiratory Exam Respiratory Exam: Clear to Ausculation Bilateral - Cardiovascular Exam Cardiovascular Exam: +S1, +S2 - Extremities Exam Extremities Exam: Normal Capillary Refill Assessment and Plan - Assessment and Plan (Free Text) Assessment: A/P PATIENT IS SEEN AND EXAMINED AT THE BEDSIDE; LUNG SOUND CLEAR; BRAIN MRI IS NEG ; NECK MRA AND HEAD MRA ALL NEG; PATIENT LDL IS 87 AND HDL IS 76; ECHO WITH BUBBLE STUDY EF 35-40; DISCUSS WITH DR STONE AND CLEAR PATIENT FOR DC ON ASA 325 AND LISINOPRIL AND NO NEED FOR FOR STATIN PER DR STONE FOLLOW UP WITH DR STONE IN A WEEK IN HIS OFFICE ----CALL OFFICE FOR APPOINTMENT CONTINUE YOUR HOME MED PRE MED RECS NEW RX LISINOPRIL 10MG DAILY AND DISCONTINUE THE CARDIZEM 240 FOR FURTHER QUESTIONS CALL DR STONE IF SYMPTOMS RETURN OR WORSENING CALL DR MORALES OR GO TO THE NEAREST EMERGENCY ROOM DISCUSS WITH PATIENT WHO AGREE AND VERBALIZE UNDERSTANDING
--- NOTE | 2017-02-12 14:05 | CP.PCM.DIS ---
Provider - Provider Date of Admission: 02/10/17 14:10 Attending physician: Nelli Robledo MD Time Spent in preparation of Discharge (in minutes): 30 Diagnosis - Discharge Diagnosis (1) TIA (transient ischemic attack) Status: Acute Priority: High (2) Ataxia Status: Chronic (3) HTN (hypertension) Status: Chronic (4) Hodgkin disease Status: Chronic Hospital Course - Lab Results Lab Results: Most Recent Lab Values WBC 5.2 K/uL (4.8-10.8) 02/09/17 08:44 RBC 3.82 Mil/uL (4.40-5.90) L 02/09/17 08:44 Hgb 13.0 g/dL (12.0-18.0) 02/09/17 08:44 Hct 40.2 % (35.0-51.0) 02/09/17 08:44 MCV 105.4 fL (80.0-94.0) H 02/09/17 08:44 MCH 34.0 pg (27.0-31.0) H 02/09/17 08:44 MCHC 32.2 g/dL (33.0-37.0) L 02/09/17 08:44 RDW 15.2 % (11.5-14.5) H 02/09/17 08:44 Plt Count 163 K/uL (130-400) 02/09/17 08:44 MPV 9.3 fL (7.2-11.7) 02/09/17 08:44 Neut % (Auto) 63.4 % (50.0-75.0) 02/09/17 08:44 Lymph % (Auto) 19.4 % (20.0-40.0) L 02/09/17 08:44 Richardson % (Auto) 11.5 % (0.0-10.0) H 02/09/17 08:44 Eos % (Auto) 4.2 % (0.0-4.0) H 02/09/17 08:44 Baso % (Auto) 1.5 % (0.0-2.0) 02/09/17 08:44 Neut # 3.3 K/uL (1.8-7.0) 02/09/17 08:44 Lymph # 1.0 K/uL (1.0-4.3) 02/09/17 08:44 Richardson # 0.6 K/uL (0.0-0.8) 02/09/17 08:44 Eos # 0.2 K/uL (0.0-0.7) 02/09/17 08:44 Baso # 0.1 K/uL (0.0-0.2) 02/09/17 08:44 Sodium 137 mmol/L (132-148) 02/09/17 08:44 Potassium 3.9 mmol/L (3.6-5.2) 02/09/17 08:44 Chloride 98 mmol/L (98-107) 02/09/17 08:44 Carbon Dioxide 26 mmol/L (22-30) 02/09/17 08:44 Anion Gap 17 (10-20) 02/09/17 08:44 BUN 24 mg/dL (9-20) H 02/09/17 08:44 Creatinine 1.2 mg/dL (0.8-1.5) 02/09/17 08:44 Est GFR ( Amer) > 60 02/09/17 08:44 Est GFR (Non-Af Amer) 58 02/09/17 08:44 Random Glucose 124 mg/dL (75-110) H 02/09/17 08:44 Hemoglobin A1c 5.8 % (4.2-6.5) 02/09/17 08:44 Calcium 9.1 mg/dl (8.6-10.4) 02/09/17 08:44 Total Bilirubin 1.1 mg/dL (0.2-1.3) 02/09/17 08:44 AST 29 U/L (17-59) 02/09/17 08:44 ALT 28 U/L (21-72) 02/09/17 08:44 Alkaline Phosphatase 71 U/L (38-126) 02/09/17 08:44 Total Protein 6.4 g/dL (6.3-8.3) 02/09/17 08:44 Albumin 4.2 g/dL (3.5-5.0) 02/09/17 08:44 Globulin 2.2 gm/dL (2.2-3.9) 02/09/17 08:44 Albumin/Globulin Ratio 1.9 (1.0-2.1) 02/09/17 08:44 Triglycerides 75 mg/dL (0-149) 02/09/17 08:44 Cholesterol 173 mg/dL (0-199) 02/09/17 08:44 LDL Cholesterol Direct 87 mg/dL (0-129) 02/09/17 08:44 HDL Cholesterol 76 mg/dL (30-70) H 02/09/17 08:44 - Hospital Course Hospital Course: ADMITTED WITH TIS LIKE SYMPTOMS 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 , CAROTID DOPPLER/MRI BRAIN/MRA NECK/HEAD AND ECHO WITH BUBBLE STUDY NEGATIVE ECHO SHOWED LV EF 40% PT WAS D/C ON ECOTRIN/LISINOPRIL F/U IN OFFICE 1 WEEK Discharge Exam - Head Exam Head Exam: ATRAUMATIC Discharge Plan - Discharge Medications Prescriptions: Lisinopril [Zestril] 10 mg PO DAILY #30 tab - Follow Up Plan Condition: STABLE Disposition: HOME/ ROUTINE Instructions: Lisinopril (By mouth), Transient Ischemic Attack (DC), Heart Healthy Diet (DC) Additional Instructions: FOLLOW UP WITH DR ROBLEDO IN A WEEK IN HIS OFFICE ----CALL OFFICE FOR APPOINTMENT CONTINUE YOUR HOME MED PRE MED RECS NEW RX LISINOPRIL 10MG DAILY AND DISCONTINUE THE CARDIZEM 240 FOR FURTHER QUESTIONS CALL DR ROBLEDO IF SYMPTOMS RETURN OR WORSENING CALL DR MORALES OR GO TO THE NEAREST EMERGENCY ROOM Referrals: Mukul Leach MD [Staff Provider] - Nelli Robledo MD [Staff Provider] -
[2017-02-12 14:11] VITALS: PULSE 69
== END 2017-02-12 13:43 | disposition home or self-care (01) | DRG 69 ==
LOC: C.ER 14:34 → C.9E 17:58 → C.6T 23:15 → OBSVTOIN 02-10 14:10
PROVIDERS: ADMIT Internal Medicine Cardiovascular Disease; ATTEND Internal Medicine Cardiovascular Disease
DX: G45.9 Transient cerebral ischemic attack, unspecified (principal); C81.90 Hodgkin lymphoma, unspecified, unspecified site; I10 Essential (primary) hypertension; I69.393 Ataxia following cerebral infarction; Z79.82 Long term (current) use of aspirin; Z85.46 Personal history of malignant neoplasm of prostate; Z85.828 Personal history of other malignant neoplasm of skin; Z90.49 Acquired absence of other specified parts of digestive tract; Z87.891 Personal history of nicotine dependence

== ENCOUNTER 2017-03-15 06:14 | Inpatient (IN) | payer MEDICARE ==
[2017-03-15 06:15] VITALS: BMI 24.1
--- NOTE | 2017-03-15 06:53 | C.PDOC ---
History Of Present Illness <Tay Castro - Last Filed: 03/15/17 06:51> <Graciela Ba - Last Filed: 03/15/17 17:06> 81 yo male with a brief episode of left arm and leg weakness yesterday which has resolved. Patient is concernes as he has had previous strokes. No headache. No pain (Tay Castro) <Tay Castro - Last Filed: 03/15/17 06:51> <Graciela Ba - Last Filed: 03/15/17 17:06> Time Seen by Provider: 03/15/17 06:30 Chief Complaint (Nursing): Weakness/Neurological Deficit Past Medical History - Medical History PMH: Anemia, CVA, Diverticulitis, HTN, Malignancy (Left Shoulder Lymphoma), TIA Denies: Chronic Kidney Disease Surgical History: Cholecystectomy Family History: States: Unknown Family Hx - Social History Hx Tobacco Use: No Hx Alcohol Use: Yes Hx Substance Use: No - Immunization History Hx Tetanus Toxoid Vaccination: No Hx Influenza Vaccination: No Hx Pneumococcal Vaccination: No <Tay Castro - Last Filed: 03/15/17 06:51> Vital Signs: Last Vital Signs Temp 98.6 F 03/15/17 06:23 Pulse 89 03/15/17 14:35 Resp 19 03/15/17 14:35 BP 168/98 H 03/15/17 14:35 Pulse Ox 97 03/15/17 14:35 - [facility] Procedures ESOPHAGOGASTRODUODENOSCOPY [EGD] W/CLOSED BIOPSY (04/20/13) FLUOROSCOPY OF GALLBLADDER USING LOW OSMOLAR CONTRAST (04/18/16) ING HERNIA REP-GRAFT NOS (09/26/12) OTHER ENDOSCOPY OF SM INTEST (08/27/14) PACKED CELL TRANSFUSION (09/26/12) RESECTION OF GALLBLADDER, PERCUTANEOUS ENDOSCOPIC APPROACH (04/18/16) Review Of Systems Constitutional: Negative for: Fever, Chills Eyes: Negative for: Pain Respiratory: Negative for: Cough, Shortness of Breath Gastrointestinal: Negative for: Nausea, Vomiting, Constipation Musculoskeletal: Negative for: Neck Pain, Back Pain Skin: Negative for: Rash Neurological: Positive for: Weakness, Numbness, Dizziness. Negative for: Altered Mental Status Psych: Negative for: Anxiety <Tay Castro - Last Filed: 03/15/17 06:51> Physical Exam - Physical Exam Appears: Well, No Acute Distress Skin: Normal Color Head: Atraumatic Eye(s): bilateral: PERRL, EOMI Throat: Normal Neck: Normal, Normal ROM Cardiovascular: Rhythm Regular Respiratory: Normal Breath Sounds Gastrointestinal/Abdominal: Normal Exam Back: Normal Inspection Extremity: Normal ROM Pulses: Left Carotid: Normal, Right Carotid: Normal, Left Radial: Normal, Right Radial: Normal Neurological/Psych: Oriented x3, Normal Speech, Normal Cranial Nerves, Normal Motor, Normal Sensation, Normal Reflexes, No Expressive Aphasia, No Receptive Aphasia Gait: Steady Extremity: Right: No Drift, Left: No Drift <MatthewTay - Last Filed: 03/15/17 06:51> ED Course And Treatment O2 Sat by Pulse Oximetry: 96 <MatthewTay - Last Filed: 03/15/17 06:51> - Laboratory Results Result Diagrams: 03/15/17 07:11 03/15/17 07:11 - CT Scan/US CT - Head Other Rad Studies (CT/US): Read By Radiologist, Radiology Report Reviewed CT/US Interpretation: EXAM: CT Head Without Intravenous Contrast. CLINICAL HISTORY: 81 years old, male; Signs and symptoms; Dizziness and weakness, extremity; Left; Additional info: Numbness left side. TECHNIQUE: Axial computed tomography images of the head/brain without intravenous contrast. All CT scans at. this facility use one or more dose reduction techniques, viz.: automated exposure control; ma/kV. adjustment per patient size (including targeted exams where dose is matched to indication; i.e. head);. or iterative reconstruction technique. 788 images are submitted. Axial images are submitted in bone. and brain windows. Coronal and sagittal reformatted images were created and reviewed. COMPARISON: CT - HEAD W/O CONTRAST 2017-02-08 16:49. FINDINGS: Brain: Cerebral and cerebellar volume loss. Patchy hypodensity is seen in the periventricular and. subcortical white matter. No hemorrhage. Ventricles: Unremarkable. No ventriculomegaly. Bones/joints: Unremarkable. No acute fracture. Soft tissues: Unremarkable. Vasculature: Vascular calcifications. Sinuses: Patchy sinus disease. Left ethmoid air cells mucus retention cyst and/or polyp. Mastoid air cells: Unremarkable. No mastoid effusion. Orbits: The globe and in some intact. Dental: Edentulous maxilla. Other findings: There is possible thickening of left tympanic membrane.Correlation with clinical. evaluation and further workup or followup as recommended by patient's clinical data. IMPRESSION: 1. No evidence of an acute intracranial hemorrhage, midline shift or mass effect is identified.Changes. of an acute infarct may not be visible on CT for up to 24 to 48 hours. If this is of clinical concern, a. follow up examination and/or MRI may be of benefit. 2. There is possible thickening of left tympanic membrane.Correlation with clinical evaluation and. further workup or followup as recommended by patient's clinical data. <Graciela Ba - Last Filed: 03/15/17 17:06> Progress <Tay Castro - Last Filed: 03/15/17 06:51> - Data Reviewed Data Reviewed: Lab, Diagnostic imaging, Old records <KeithGraciela - Last Filed: 03/15/17 17:06> - Re-Evaluation Re-evaluation Note: 03/15/17 07:00 S/O RECEIVED FROM DR CASTRO: L SIDED WEAKNESS, NOW RESOLVED SINCE LAST NIGHT PT ASYMPT UPON PRESENTATION PER DR CASTRO. KEITH PRIOR TIA. CT, LABS PENDING DC 02/12 S/P TIA ADMISSION. COMPLETE NEURO W/U , CAROTID DOPPLER/MRI BRAIN/MRA NECK/HEAD AND ECHO WITH BUBBLE STUDY NEGATIVE ECHO SHOWED LV EF 40% PT WAS D/C ON ECOTRIN/LISINOPRIL F/U IN OFFICE 1 WEEK 03/15/17 07:58 PS STILL W RESIDUAL L CHEEK NUMBNESS "BUT BETTER THAN BEFORE". CO STILL W RESIDUAL L LEG "HEAVINESS" BUT IMPROVED. SX INITIAL ONSET 1700 LAST NIGHT. COMPLIANT W MEDS. 03/15/17 08:[address] BARROSO SINCE 80903/15/17 08:[address] BARROSO 03/15/17 09:02 D/W DR ROBLEDO C/F PMD WILL ADMIT. NO RESPONSE DR BARROSO (Graciela Ba) NIHSS Stroke Scale 2 - Date/Time Evaluation Performed Date Performed: 03/15/17 Time Performed: 08:06 When Was NIHSS Performed: Re-evaluation - How Severe is the Stroke Level of Consciousness: 0=Alert LOC to Questions: 0=Both comments correct LOC to commands: 0=Obeys both correctly Best Gaze: 0=Normal Visual: 0=No visual loss Facial: 0=Normal Motor Arm - Left: 0=No drift Motor Arm - Right: 0=No drift Motor Leg - Left: 0=No drift Motor Leg - Right: 0=No drift Limb Ataxia: 0=Absent Sensory: 0=Normal Best Language: 0=No aphasia Dysarthia: 0=Normal articulation Extinction & Inattention (Neglect): 0=Normal, no object Score: 0 <Graciela Ba - Last Filed: 03/15/17 17:06> rTPA Inclusion/Exclusion - Inclusion Criteria for Altepase Patient is 18 years or Older: Yes The Clinical Diagnosis of Ischemic Stroke That is Causing a Potentially Disabling Neurological Deficit: No Time of Onset is Well Established to be Less Than 270 Minute Before Treatment Would Begin: No Risk/Benefit Discussed With Patient/Family Member Present: No - Exclusion Criteria for Altepase Uncontrolled Hypertension at Time of Treatment (Systolic BP above 185 or Diastolic BP above 110 mmHg): No Known Bleeding Diathesis Including but Not Limited to: Platelets Below 100,000/ mm,PTT Above 40 sec After Heparin Use, Current Use of Oral Anitcoagulant With INR Greater Than 1.7 or PT Greater Than 15 secs: No Evidence of an Intracranial Hemorrhage: No Evidence of Major Acute Infarct With Signs Greater Than 1/3 MCA Territory: No Suspicion of Subarachnoid Hemorrhage on Pretreatment Evaluation Even if CT Head Negative For Hemorrhage: No - Warning to TPA With Conditions Following Conditions Weighed Against Anticipated Benefit: Yes Condition: Stroke Serevity Too Mild, Age Greater Than 75 years Additional Condition (For 3-4.5 Hour Window): Age Greater Than 80, Prior Stroke and Diabetes <Graciela Ba - Last Filed: 03/15/17 17:06> Disposition <Tay Castro - Last Filed: 03/15/17 06:51> Counseled Patient/Family Regarding: Studies Performed, Diagnosis - Disposition Disposition Time: 09:03 - POA Present On Arrival: None <Graciela Ba - Last Filed: 03/15/17 17:06> - Disposition Disposition: HOSPITALIZED Condition: STABLE - Clinical Impression Clinical Impression: TIA (transient ischemic attack) Decision To Admit <Tay Castro - Last Filed: 03/15/17 06:51> - Pt Status Changed To: Hospital Disposition Of: Observation - . Bed Request Type: Telemetry Admitting Physician: Nelli Robledo <Graciela Ba - Last Filed: 03/15/17 17:06> - . Patient Diagnosis: TIA (transient ischemic attack)
[2017-03-15 07:20] LABS: BASO % 0.4 % (0.0-2.0); EOS # 0.2 K/uL (0.0-0.7); EOS % 2.2 % (0.0-4.0); HEMATOCRIT 39.3 % (35.0-51.0); LYMPH # 0.8 K/uL (1.0-4.3); MEAN CELL VOLUME 103.5 fL (80.0-94.0); MEAN CORPUSCULAR HEMOGLOBIN 35.9 pg (27.0-31.0); MEAN CORPUSCULAR HGB CONC 34.7 g/dL (33.0-37.0); MEAN PLATELET VOLUME 8.9 fL (7.2-11.7); MONO # 0.6 K/uL (0.0-0.8); MONO % 8.7 % (0.0-10.0); WHITE BLOOD COUNT 6.9 K/uL (4.8-10.8)
[2017-03-15 07:31] LABS: CALCIUM 9.3 mg/dl (8.6-10.4); GFR AFRICAN-AMERICAN > 60; INR 0.9
[2017-03-15 07:46] LABS: ALKALINE PHOSPHATASE 51 U/L (38-126); ALT/SGPT 25 U/L (21-72); AST/SGOT 50 U/L (17-59); BLOOD UREA NITROGEN 21 mg/dL (9-20); CARBON DIOXIDE 28 mmol/L (22-30); CHLORIDE 98 mmol/L (98-107); GLUCOSE,RANDOM 107 mg/dL (75-110); POTASSIUM 5.1 mmol/L (3.6-5.2); SODIUM 132 mmol/L (132-148); TOTAL PROTEIN 8.1 g/dL (6.3-8.3)
--- NOTE | 2017-03-15 07:55 | CT ---
EXAM: CT Head Without Intravenous Contrast CLINICAL HISTORY: 81 years old, male; Signs and symptoms; Dizziness and weakness, extremity; Left; Additional info: Numbness left side TECHNIQUE: Axial computed tomography images of the head/brain without intravenous contrast. All CT scans at this facility use one or more dose reduction techniques, viz.: automated exposure control; ma/kV adjustment per patient size (including targeted exams where dose is matched to indication; i.e. head); or iterative reconstruction technique. 788 images are submitted. Axial images are submitted in bone and brain windows. Coronal and sagittal reformatted images were created and reviewed. COMPARISON: CT - HEAD W/O CONTRAST 2017-02-08 16:49 FINDINGS: Brain: Cerebral and cerebellar volume loss. Patchy hypodensity is seen in the periventricular and subcortical white matter. No hemorrhage. Ventricles: Unremarkable. No ventriculomegaly. Bones/joints: Unremarkable. No acute fracture. Soft tissues: Unremarkable. Vasculature: Vascular calcifications. Sinuses: Patchy sinus disease. Left ethmoid air cells mucus retention cyst and/or polyp. Mastoid air cells: Unremarkable. No mastoid effusion. Orbits: The globe and in some intact. Dental: Edentulous maxilla. Other findings: There is possible thickening of left tympanic membrane.Correlation with clinical evaluation and further workup or followup as recommended by patient's clinical data. IMPRESSION: 1. No evidence of an acute intracranial hemorrhage, midline shift or mass effect is identified.Changes of an acute infarct may not be visible on CT for up to 24 to 48 hours. If this is of clinical concern, a follow up examination and/or MRI may be of benefit. 2. There is possible thickening of left tympanic membrane.Correlation with clinical evaluation and further workup or followup as recommended by patient's clinical data.
--- NOTE | 2017-03-15 09:56 | CARD ---
APPROVED REPORT EKG Measurement Heart [id number] <Conclusion> Sinus rhythm LAD STTW changes c/w ischemia, new
--- NOTE | 2017-03-15 10:40 | RAD ---
HISTORY: left weak COMPARISON: 02/08/2017. FINDINGS: The right subclavian line terminates in the right atrium LUNGS: The lungs are clear. PLEURA: No significant pleural effusion identified, no pneumothorax apparent. CARDIOVASCULAR: Normal. OSSEOUS STRUCTURES: There is an old fracture deformity in the left posterior 7th rib. VISUALIZED UPPER ABDOMEN: Normal. OTHER FINDINGS: Surgical clips in the right upper quadrant are related to prior cholecystectomy.. IMPRESSION: No acute findings.
--- NOTE | 2017-03-15 14:56 | CP.PCM.HP ---
History of Present Illness - History of Present Illness History of Present Illness: 81 yo male with a brief episode of left arm and leg weakness yesterday which has resolved. Pt. was recently admitted in for similar episode CT/MRI head , carrotids and bubble study for shunt were neg CT shows some thickening of tm in ear Present on Admission - Present on Admission Any Indicators Present on Admission: No Review of Systems - Constitutional Constitutional: absent: As Per HPI, Anorexia, Chills, Daytime Sleepiness, Excessive Sweating, Fatigue, Fever, Frequent Falls, Headache, Increased Appetite , Lethargy, Malaise, Night Sweats, Snoring, Sleep Apnea, Weight Gain, Weight Loss, Weakness, Other - EENT Eyes: absent: As Per HPI, Blind Spots, Blurred Vision, Change in Vision, Decreased Night Vision, Diplopia, Discharge, Dry Eye, Exophthalmos, Floaters, Irritation, Itchy Eyes, Loss of Peripheral Vision, Pain, Photophobia, Requires Corrective Lenses, Sees Flashes, Spots in Vision, Tunnel Vision, Other Visual Disturbances, Loss of Vision, Other Ears: absent: As Per HPI, Decreased Hearing, Ear Discharge, Ear Pain, Tinnitus, Abnormal Hearing, Disequilibrium, Dizziness, Other Nose/Mouth/Throat: absent: As Per HPI, Epistaxis, Nasal Congestion, Nasal Discharge, Nasal Obstruction, Nasal Trauma, Nose Pain, Post Nasal Drip, Sinus Pain, Sinus Pressure, Bleeding Gums, Change in Voice, Dental Pain, Dry Mouth, Dysphagia, Halitosis, Hoarsness, Lip Swelling, Mouth Lesions, Mouth Pain, Odynophagia, Sore Throat, Throat Swelling, Tongue Swelling, Facial Pain, Neck Pain, Neck Mass, Other - Cardiovascular Cardiovascular: absent: As Per HPI, Acrocyanosis, Chest Pain, Chest Pain at Rest , Chest Pain with Activity, Claudication, Diaphoresis, Dyspnea, Dyspnea on Exertion, Edema, Irregular Heart Rhythm, Pain Radiating to Arm/Neck/Jaw, Leg Edema, Leg Ulcers, Lightheadedness, Orthopnea, Palpitations, Paroxysmal Nocturnal Dyspnea, Pedal Edema, Radiating Pain, Rapid Heart Rate, Slow Heart Rate, Syncope, Other - Gastrointestinal Gastrointestinal: absent: As Per HPI, Abdominal Pain, Belching, Bloating, Change in Bowel Habits, Change in Stool Character, Coffee Ground Emesis, Constipation, Cramping, Diarrhea, Dyspepsia, Dysphagia, Early Satiety, Excessive Flatus, Fecal Incontinence, Heartburn, Hematemesis, Hematochezia, Loose Stools, Melena, Nausea, Odynophagia, Temesmus, Vomiting, Other - Genitourinary Genitourinary: absent: As Per HPI, Change in Urinary Stream, Difficulty Urinating, Dysuria, Flank Pain, Hematuria, Pyuria, Nocturia, Urinary Incontinence, Urinary Frequency, Urinary Hesitance, Urinary Urgency, Voiding Freq/Small Amts, Freq UTI, Hx Renal/Bladder Calculi, Hx /Renal Surgery, Bladder Distension, Other - Musculoskeletal Musculoskeletal: absent: As Per HPI, Abnormal Gait, Arthralgias, Atrophy, Back Pain, Deformity, Joint Swelling, Limited Range of Motion, Loss of Height, Muscle Cramps, Muscle Weakness, Myalgias, Neck Pain, Numbness, Radiating Pain into Limb, Stiffness, Tingling, Other - Integumentary Integumentary: absent: As Per HPI, Acne, Alopecia, Bleeding Lesions, Change in Hair, Change in Nails, Change in Pigmentation, Changing Lesions, Dry Skin, Erythema, Furuncle, Hirsutism, Lesions, New Lesions, Non-Healing Lesions, Photosensitivity, Pruritus, Rash, Skin Pain, Skin Ulcer, Sores, Striae, Swelling , Unusual Bruising, Wounds, Jaundice, Other - Neurological Neurological: Disequilibrium, Focal Weakness, Tingling. absent: As Per HPI, Abnormal Gait, Abnormal Hearing, Abnormal Movements, Abnormal Speech, Behavioral Changes, Burning Sensations, Confusion, Convulsions, Dizziness, Numbness, Frequent Falls, Headaches, Lack of Coordination, Loss of Vision, Memory Loss, Paresthesias, Radicular Pain, Restless Legs, Sensory Deficit, Syncope, Tremor, Vertigo, Weakness, Other Visual Disturbances, Other - Endocrine Endocrine: absent: As Per HPI, Change in Body Appearance, Change in Libido, Cold Intolorance, Deepening of Voice, Excessive Sweating, Fatigue, Flushing, Heat Intolorance, Increase in Ring/Shoe/Hat Size, Palpitations, Polydipsia, Polyphagia, Polyuria, Other - Hematologic/Lymphatic Hematologic: absent: As Per HPI, Easy Bleeding, Easy Bruising, Lymphadenopathy, Other Past Patient History - Infectious Disease Hx of Infectious Diseases: None - Tetanus Immunizations Tetanus Immunization: Unknown - Past Medical History & Family History Past Medical History?: Yes - Past Social History Smoking Status: Former Smoker - CARDIAC Hx Hypertension: Yes - PULMONARY Hx Respiratory Disorders: No - NEUROLOGICAL Hx Transient Ischemic Attacks (TIA): Yes - HEENT Hx HEENT Problems: No - RENAL Hx Chronic Kidney Disease: No - ENDOCRINE/METABOLIC Hx Endocrine Disorders: No - HEMATOLOGICAL/ONCOLOGICAL Hx Anemia: Yes - INTEGUMENTARY Hx Dermatological Problems: No - MUSCULOSKELETAL/RHEUMATOLOGICAL Hx Musculoskeletal Disorders: No - GASTROINTESTINAL Hx Diverticulitis: Yes - GENITOURINARY/GYNECOLOGICAL Hx Genitourinary Disorders: Yes Hx Prostate Cancer: Yes (WITH SEED IMPLANTS) - PSYCHIATRIC Hx Substance Use: No - SURGICAL HISTORY Hx Cholecystectomy: Yes - ANESTHESIA Hx Anesthesia: Yes Hx Anesthesia Reactions: No Hx Malignant Hyperthermia: No Meds Allergies/Adverse Reactions: Allergies Allergy/AdvReac Type Severity Reaction Status Date / Time No Known Allergies Allergy Verified 03/15/17 06:34 Physical Exam - Constitutional Appears: Well - Head Exam Head Exam: ATRAUMATIC, NORMAL INSPECTION, NORMOCEPHALIC - Eye Exam Eye Exam: EOMI, Normal appearance, PERRL - ENT Exam ENT Exam: Mucous Membranes Moist, Normal Exam - Neck Exam Neck exam: Positive for: Normal Inspection - Respiratory Exam Respiratory Exam: Clear to Auscultation Bilateral, NORMAL BREATHING PATTERN - Cardiovascular Exam Cardiovascular Exam: +S1, +S2, +S4 - GI/Abdominal Exam GI & Abdominal Exam: Normal Bowel Sounds, Soft. absent: Tenderness - Rectal Exam Rectal Exam: Deferred - Extremities Exam Extremities exam: Positive for: normal inspection - Neurological Exam Neurological exam: Alert, CN II-XII Intact, Normal Gait, Oriented x3, Reflexes Normal Results - Vital Signs Recent Vital Signs: Last Vital Signs Temp 98.6 F 03/15/17 06:23 Pulse 89 03/15/17 14:35 Resp 19 03/15/17 14:35 BP 168/98 H 03/15/17 14:35 Pulse Ox 97 03/15/17 14:35 - Labs Result Diagrams: 03/15/17 07:11 03/15/17 07:11 Labs: Laboratory Results - last 24 hr 03/15/17 03/15/17 03/15/17 07:11 07:11 07:11 WBC 6.9 RBC 3.79 L Hgb 13.6 Hct 39.3 MCV 103.5 H MCH 35.9 H MCHC 34.7 RDW 15.0 H Plt Count 165 MPV 8.9 Neut % (Auto) 76.7 H Lymph % (Auto) 12.0 L [place] % (Auto) 8.7 Eos % (Auto) 2.2 Baso % (Auto) 0.4 Neut # 5.3 Lymph # 0.8 L [place] # 0.6 Eos # 0.2 Baso # 0.0 PT 10.4 INR 0.9 APTT 26 Sodium 132 Potassium 5.1 Chloride 98 Carbon Dioxide 28 Anion Gap 11 BUN 21 H Creatinine 1.0 Est GFR ( Amer) > 60 Est GFR (Non-Af Amer) > 60 Random Glucose 107 Calcium 9.3 Total Bilirubin 1.0 AST 50 ALT 25 Alkaline Phosphatase 51 Troponin I 0.0240 Total Protein 8.1 Albumin 4.1 Globulin 4.0 H Albumin/Globulin Ratio 1.0 Assessment & Plan (1) TIA (transient ischemic attack) Status: Acute Priority: High Comment: may need repeat MRI (2) HTN (hypertension) Status: Chronic (3) Hodgkin disease Status: Chronic (4) Cardiomyopathy Status: Chronic
--- NOTE | 2017-03-15 15:54 | CP.PCM.CON ---
History of Present Illness - History of Present Illness History of Present Illness: Mr. Silva is an 81-year-old man with a past medical history of two previous ischemic strokes (no residual deficits at baseline), hypertension, who presented with transient left side weakness/numbness that has basically resolved. He states that he still "feels funny" around his lip on the left side , but otherwise, his strength is back to normal. He is on aspirin 325 mg daily. He did not have any other complaints. Review of Systems - Review of Systems All systems: reviewed and no additional remarkable complaints except Past Patient History - Infectious Disease Hx of Infectious Diseases: None - Tetanus Immunizations Tetanus Immunization: Unknown - Past Medical History & Family History Past Medical History?: Yes - Past Social History Smoking Status: Former Smoker - CARDIAC Hx Hypertension: Yes - PULMONARY Hx Respiratory Disorders: No - NEUROLOGICAL Hx Transient Ischemic Attacks (TIA): Yes - HEENT Hx HEENT Problems: No - RENAL Hx Chronic Kidney Disease: No - ENDOCRINE/METABOLIC Hx Endocrine Disorders: No - HEMATOLOGICAL/ONCOLOGICAL Hx Anemia: Yes - INTEGUMENTARY Hx Dermatological Problems: No - MUSCULOSKELETAL/RHEUMATOLOGICAL Hx Musculoskeletal Disorders: No - GASTROINTESTINAL Hx Diverticulitis: Yes - GENITOURINARY/GYNECOLOGICAL Hx Genitourinary Disorders: Yes Hx Prostate Cancer: Yes (WITH SEED IMPLANTS) - PSYCHIATRIC Hx Substance Use: No - SURGICAL HISTORY Hx Cholecystectomy: Yes - ANESTHESIA Hx Anesthesia: Yes Hx Anesthesia Reactions: No Hx Malignant Hyperthermia: No Meds Allergies/Adverse Reactions: Allergies Allergy/AdvReac Type Severity Reaction Status Date / Time No Known Allergies Allergy Verified 03/15/17 06:34 - Medications Medications: Current Medications Aspirin (Aspirin) 325 mg PO DAILY KA[facility]NN Gabapentin (Neurontin) 300 mg PO DAILY [facility] Lisinopril (Zestril) 10 mg PO DAILY [facility]NN Physical Exam - Constitutional Appears: Well - Head Exam Head Exam: ATRAUMATIC, NORMAL INSPECTION, NORMOCEPHALIC - Eye Exam Eye Exam: EOMI, Normal appearance, PERRL - ENT Exam ENT Exam: Mucous Membranes Moist, Normal Exam - Neck Exam Neck exam: Positive for: Normal Inspection - Respiratory Exam Respiratory Exam: Clear to Auscultation Bilateral, NORMAL BREATHING PATTERN - Cardiovascular Exam Cardiovascular Exam: REGULAR RHYTHM, +S1, +S2 - GI/Abdominal Exam GI & Abdominal Exam: Normal Bowel Sounds, Soft. absent: Tenderness - Rectal Exam Rectal Exam: Deferred - Back Exam Back exam: NORMAL INSPECTION - Neurological Exam Neurological exam: Alert, CN II-XII Intact, Normal Gait, Oriented x3, Reflexes Normal Additional comments: NIHSS = 0 - Psychiatric Exam Psychiatric exam: Normal Affect, Normal Mood - Skin Skin Exam: Dry, Intact, Normal Color, Warm Results - Vital Signs Recent Vital Signs: Last Vital Signs Temp 98.6 F 03/15/17 06:23 Pulse 89 03/15/17 14:35 Resp 19 03/15/17 14:35 BP 168/98 H 03/15/17 14:35 Pulse Ox 97 03/15/17 14:35 - Labs Result Diagrams: 03/15/17 07:11 03/15/17 07:11 Labs: Laboratory Results - last 24 hr 03/15/17 03/15/17 03/15/17 07:11 07:11 07:11 WBC 6.9 RBC 3.79 L Hgb 13.6 Hct 39.3 MCV 103.5 H MCH 35.9 H MCHC 34.7 RDW 15.0 H Plt Count 165 MPV 8.9 Neut % (Auto) 76.7 H Lymph % (Auto) 12.0 L [place] % (Auto) 8.7 Eos % (Auto) 2.2 Baso % (Auto) 0.4 Neut # 5.3 Lymph # 0.8 L [place] # 0.6 Eos # 0.2 Baso # 0.0 PT 10.4 INR 0.9 APTT 26 Sodium 132 Potassium 5.1 Chloride 98 Carbon Dioxide 28 Anion Gap 11 BUN 21 H Creatinine 1.0 Est GFR ( Amer) > 60 Est GFR (Non-Af Amer) > 60 Random Glucose 107 Calcium 9.3 Total Bilirubin 1.0 AST 50 ALT 25 Alkaline Phosphatase 51 Troponin I 0.0240 Total Protein 8.1 Albumin 4.1 Globulin 4.0 H Albumin/Globulin Ratio 1.0 - Imaging and Cardiology CT scan - head Status: Image reviewed by me, Report reviewed by me (No acute findings. ) Assessment & Plan (1) TIA (transient ischemic attack) Assessment and Plan: Symptoms are resolved; however, with his risk factors and history, I recommend the followin. Telemetry for overnight observation 2. CTA of the head/neck 3. Start Plavix 75 mg daily, in addition to aspirin 81 mg daily 4. Start Lipitor 20 mg daily to keep LDL below 70 5. Fluids with NS at 100 mL/hr 6. PT/OT eval If CTA is normal, and the patient is tolerating new medications well, he may be discharged to follow up with me in the outpatient vascular neurology clinic on March 31. Thank you. Status: Acute Priority: High
[2017-03-15] MEDS ORDERED: Iodixanol 320 MG/ML 100 ML BOTTLE IV ONE (17:03)
[2017-03-15 17:53] VITALS: RESP 20
[2017-03-15 18:46] LABS: CHOLESTEROL 174 mg/dL (0-199)
--- NOTE | 2017-03-15 19:26 | CT ---
EXAM: CT Angiography Head With Intravenous Contrast CLINICAL HISTORY: 81 years old, male; Signs and symptoms; Other: TIA TECHNIQUE: Axial computed tomographic angiography images of the head with intravenous contrast using CT angiography protocol. All CT scans at this facility use one or more dose reduction techniques, viz.: automated exposure control; ma/kV adjustment per patient size (including targeted exams where dose is matched to indication; i.e. head); or iterative reconstruction technique. MIP reconstructed images were created and reviewed. Coronal and sagittal reformatted images were created and reviewed. CONTRAST: 100 mL of [id number] administered intravenously. COMPARISON: No relevant prior studies available. FINDINGS: Right internal carotid artery: No acute findings. Intracranial segment is patent with no significant stenosis. No aneurysm. Right anterior cerebral artery: Unremarkable. No occlusion or significant stenosis. No aneurysm. Right middle cerebral artery: Unremarkable. No occlusion or significant stenosis. No aneurysm. Right posterior cerebral artery: No occlusion or significant stenosis. No aneurysm. Right vertebral artery: The patient is right vertebral artery dominant. No stenosis. The posterior communicating arteries are hypoplastic bilaterally Left internal carotid artery: No acute findings. Intracranial segment is patent with no significant stenosis. No aneurysm. Left anterior cerebral artery: Unremarkable. No occlusion or significant stenosis. No aneurysm. Left middle cerebral artery: Unremarkable. No occlusion or significant stenosis. No aneurysm. Left posterior cerebral artery: Unremarkable. No occlusion or stenosis.. Left vertebral artery: The left vertebral artery appears occluded at the origin. It is seen is a thread like vessel beginning at level C6. It fully reconstitutes via muscular collaterals at C2 to 3 disc space. The intradural portion of the left vertebral artery occludes intermittently before joining the right vertebral artery to form the basilar artery.. Basilar artery: Unremarkable. No stenosis.. Sinuses: Mucous retention cyst is noted in the left posterior ethmoid air cell. A small air-fluid level seen in left maxillary sinus. Other findings: Degenerative disease is noted within the cervical spine IMPRESSION: 1. 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 MRA of the head and neck would be helpful to determine direction of flow in the left vertebral artery.. 2. [place] shows no evidence of aneurysm or stenosis. 3. Hypoplastic posterior communicating arteries bilaterally. 4. Small air-fluid level within left maxillary sinus. Mucous retention cyst in left mid ethmoid air cell. EXAM: CT Angiography Neck With Intravenous Contrast EXAM DATE/TIME: Exam ordered 03/15/2017 3:55 PM CLINICAL HISTORY: 81 years old, male; Signs and symptoms; Other: TIA TECHNIQUE: Axial computed tomographic angiography images of the neck with intravenous contrast using CT angiography protocol. All CT scans at this facility use one or more dose reduction techniques, viz.: automated exposure control; ma/kV adjustment per patient size (including targeted exams where dose is matched to indication; i.e. head); or iterative reconstruction technique. MIP reconstructed images were created and reviewed. Coronal and sagittal reformatted images were created and reviewed. CONTRAST: 100 mL of [id number] administered intravenously. COMPARISON: CT - HEAD W/O CONTRAST 2017-03-15 06:55 FINDINGS: VASCULATURE: Right common carotid artery: Tiny amount of plaque is noted in the right common carotid artery. No significant stenosis. No dissection or occlusion. Right internal carotid artery: Unremarkable. Extracranial segment is patent with no significant stenosis. No dissection or occlusion. Right external carotid artery: Unremarkable. No occlusion. Right vertebral artery: Unremarkable. No significant stenosis. No dissection or occlusion. Left common carotid artery: A small amount of plaque within the left common carotid artery. No significant stenosis. No dissection or occlusion. Left internal carotid artery: Unremarkable. Extracranial segment is patent with no significant stenosis. No dissection or occlusion. Left external carotid artery: Unremarkable. No occlusion. Left vertebral artery: The left vertebral artery appears occluded at the origin. It is seen as a threadlike vessel at approximately level at C6. It fully reconstitutes via muscular collaterals at C2 to 3 disc space. The intradural portion of the left vertebral artery occludes intermittently before joining the right vertebral artery to form the basilar artery. Other vasculature: The distal tip of a right internal jugular line is not included on the film. NECK: Bones/joints: The sternum is heterogeneous and mottled in density. No acute fracture. No dislocation. Soft tissues: Unremarkable as visualized. No mass. Submandibular/parotid glands: A calcification is noted within the left submandibular gland. A 1.6 cm calculus is noted in the left submandibular gland. A second calcification measuring 3 mm is noted within the submandibular duct. The duct is mildly dilated. CAROTID STENOSIS REFERENCE USING NASCET CRITERIA: % ICA stenosis = (1 - narrowest ICA diameter/diameter of distal cervical ICA) x 100. Mild - <50% stenosis. Moderate - 50-69% stenosis. Severe - 70-94% stenosis. Near occlusion - 95-99% stenosis. Occluded - 100% stenosis. IMPRESSION: 1. 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 It does reconstitute via muscular collaterals. See above. MRA of the neck would be helpful to determine direction of flow within left vertebral artery if clinically relevant 2. Less than 50% diameter reduction of the left internal carotid artery. 3.Less than 50% diameter reduction of the right internal carotid artery. 4. The sternum is heterogeneous in density. Metastatic disease is among the diagnostic considerations. 5. Calculi within the left submandibular gland with dilatation of the submandibular duct.
--- NOTE | 2017-03-16 16:01 | CP.PCM.PN ---
Subjective - Date & Time of Evaluation Date of Evaluation: 03/16/17 Time of Evaluation: 15:58 - Subjective Subjective: CHIEF COMPLAINTS TODAY : STILL C/O LEFT FACIAL NUMBNESS ROS. HEENT : N. Resp : No cough, wheezing ,pleuritic CP ,or hemoptysis Cardio : No anginal CP, PND, orthopnea, palpitation GI : No abd.pain, n/v ,diarrhea or GI bleeding . 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 Musculoskel : No joint swelling , Derm : No rash Psych : Normal affect. Ext : No swelling ,calf pain PE. Pt. is alert awake in no distress. V.S As noted in the chart Head ,ear nose,throat and eyes : Normal. Neck : Supple with normal carotids. Lungs: Clear air entry. Heart : S1 & S2 normal with S4. No murmur. Abd : Soft non tender with normal bowel sounds. Neuro : Moves all ext. with no localized deficit. Ext : No edema with intact pulses.Non tender calves Derm : No rashes or decubitus ulcer. LABS/RADIOLOGY: CTA OF HEAD , HIGH GRADE STENOSIS /OCCLUSION OF L VERT. ARTERY WHICH LATER RECONSTITUTE ASSESSMENT/PLAN : ON DAPT PER NEURO FOR FURTHER F/U Objective - Vital Signs/Intake and Output Vital Signs (last 24 hours): Temp Pulse Resp BP Pulse Ox 97.7 F 77 20 111/70 96 03/16/17 09:34 03/16/17 09:34 03/16/17 09:34 03/16/17 09:34 03/16/17 09:34 - Medications Medications: Current Medications Aspirin (Ecotrin) 81 mg PO DAILY [facility] Last Admin: 03/16/17 09:52 Dose: 81 mg Clopidogrel Bisulfate (Plavix) 75 mg PO DAILY [facility] Last Admin: 03/16/17 09:52 Dose: 75 mg Gabapentin (Neurontin) 300 mg PO DAILY [facility] Last Admin: 03/16/17 09:52 Dose: 300 mg Lisinopril (Zestril) 10 mg PO DAILY [facility] Last Admin: 03/16/17 09:52 Dose: 10 mg Rosuvastatin Calcium (Crestor) 10 mg PO HS [facility] Last Admin: 03/15/17 22:55 Dose: 10 mg - Labs Labs: 03/15/17 07:11 03/15/17 07:11 PT 10.4 SECONDS (9.7-12.2) 03/15/17 07:11 INR 0.9 03/15/17 07:11 APTT 26 SECONDS (21-34) 03/15/17 07:11 Assessment and Plan (1) TIA (transient ischemic attack) Status: Acute (2) HTN (hypertension) Status: Chronic (3) Hodgkin disease Status: Chronic (4) Cardiomyopathy Status: Chronic
--- NOTE | 2017-03-17 14:24 | CP.PCM.PN ---
Subjective - Date & Time of Evaluation Date of Evaluation: 03/17/17 Time of Evaluation: 14:24 - Subjective Subjective: CHIEF COMPLAINTS TODAY : STILL C/O LEFT FACIAL NUMBNESS ROS. HEENT : N. Resp : No cough, wheezing ,pleuritic CP ,or hemoptysis Cardio : No anginal CP, PND, orthopnea, palpitation GI : No abd.pain, n/v ,diarrhea or GI bleeding . 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 Musculoskel : No joint swelling , Derm : No rash Psych : Normal affect. Ext : No swelling ,calf pain PE. Pt. is alert awake in no distress. V.S As noted in the chart Head ,ear nose,throat and eyes : Normal. Neck : Supple with normal carotids. Lungs: Clear air entry. Heart : S1 & S2 normal with S4. No murmur. Abd : Soft non tender with normal bowel sounds. Neuro : Moves all ext. with no localized deficit. Ext : No edema with intact pulses.Non tender calves Derm : No rashes or decubitus ulcer. LABS/RADIOLOGY: CTA OF HEAD , HIGH GRADE STENOSIS /OCCLUSION OF L VERT. ARTERY WHICH LATER RECONSTITUTE ASSESSMENT/PLAN : ON DAPT PER NEURO FOR FURTHER F/U Objective - Vital Signs/Intake and Output Vital Signs (last 24 hours): Temp Pulse Resp BP Pulse Ox 97.4 F L 67 20 115/73 94 L 03/17/17 09:00 03/17/17 09:00 03/17/17 09:00 03/17/17 09:00 03/17/17 09:00 - Medications Medications: Current Medications Aspirin (Ecotrin) 81 mg PO DAILY [facility] Last Admin: 03/17/17 10:08 Dose: 81 mg Clopidogrel Bisulfate (Plavix) 75 mg PO DAILY [facility] Last Admin: 03/17/17 10:08 Dose: 75 mg Gabapentin (Neurontin) 300 mg PO DAILY [facility] Last Admin: 03/17/17 10:08 Dose: 300 mg Lisinopril (Zestril) 10 mg PO DAILY [facility] Last Admin: 03/17/17 10:08 Dose: 10 mg Rosuvastatin Calcium (Crestor) 10 mg PO HS [facility] Last Admin: 03/16/17 22:15 Dose: 10 mg - Labs Labs: 03/15/17 07:11 03/15/17 07:11 PT 10.4 SECONDS (9.7-12.2) 03/15/17 07:11 INR 0.9 03/15/17 07:11 APTT 26 SECONDS (21-34) 03/15/17 07:11 Assessment and Plan (1) TIA (transient ischemic attack) Status: Acute (2) HTN (hypertension) Status: Chronic (3) Hodgkin disease Status: Chronic (4) Cardiomyopathy Status: Chronic
[2017-03-18 09:06] VITALS: O2SAT 98
--- NOTE | 2017-03-18 14:14 | CP.PCM.DIS ---
Provider - Provider Date of Admission: 03/17/17 05:48 Attending physician: Nelli Robledo MD Time Spent in preparation of Discharge (in minutes): 30 Diagnosis - Discharge Diagnosis (1) TIA (transient ischemic attack) Status: Acute Priority: High (2) HTN (hypertension) Status: Chronic (3) Hodgkin disease Status: Chronic (4) Cardiomyopathy Status: Chronic Hospital Course - Lab Results Lab Results: Most Recent Lab Values WBC 6.9 K/uL (4.8-10.8) 03/15/17 07:11 RBC 3.79 Mil/uL (4.40-5.90) L 03/15/17 07:11 Hgb 13.6 g/dL (12.0-18.0) 03/15/17 07:11 Hct 39.3 % (35.0-51.0) 03/15/17 07:11 MCV 103.5 fL (80.0-94.0) H 03/15/17 07:11 MCH 35.9 pg (27.0-31.0) H 03/15/17 07:11 MCHC 34.7 g/dL (33.0-37.0) 03/15/17 07:11 RDW 15.0 % (11.5-14.5) H 03/15/17 07:11 Plt Count 165 K/uL (130-400) 03/15/17 07:11 MPV 8.9 fL (7.2-11.7) 03/15/17 07:11 Neut % (Auto) 76.7 % (50.0-75.0) H 03/15/17 07:11 Lymph % (Auto) 12.0 % (20.0-40.0) L 03/15/17 07:11 [place] % (Auto) 8.7 % (0.0-10.0) 03/15/17 07:11 Eos % (Auto) 2.2 % (0.0-4.0) 03/15/17 07:11 Baso % (Auto) 0.4 % (0.0-2.0) 03/15/17 07:11 Neut # 5.3 K/uL (1.8-7.0) 03/15/17 07:11 Lymph # 0.8 K/uL (1.0-4.3) L 03/15/17 07:11 [place] # 0.6 K/uL (0.0-0.8) 03/15/17 07:11 Eos # 0.2 K/uL (0.0-0.7) 03/15/17 07:11 Baso # 0.0 K/uL (0.0-0.2) 03/15/17 07:11 PT 10.4 SECONDS (9.7-12.2) 03/15/17 07:11 INR 0.9 03/15/17 07:11 APTT 26 SECONDS (21-34) 03/15/17 07:11 Sodium 132 mmol/L (132-148) 03/15/17 07:11 Potassium 5.1 mmol/L (3.6-5.2) 03/15/17 07:11 Chloride 98 mmol/L (98-107) 03/15/17 07:11 Carbon Dioxide 28 mmol/L (22-30) 03/15/17 07:11 Anion Gap 11 (10-20) 03/15/17 07:11 BUN 21 mg/dL (9-20) H 03/15/17 07:11 Creatinine 1.0 mg/dL (0.8-1.5) 03/15/17 07:11 Est GFR ( Amer) > 60 03/15/17 07:11 Est GFR (Non-Af Amer) > 60 03/15/17 07:11 POC Glucose (mg/dL) 85 mg/dL (65-110) 03/18/17 11:47 Random Glucose 107 mg/dL (75-110) 03/15/17 07:11 Calcium 9.3 mg/dl (8.6-10.4) 03/15/17 07:11 Total Bilirubin 1.0 mg/dL (0.2-1.3) 03/15/17 07:11 AST 50 U/L (17-59) 03/15/17 07:11 ALT 25 U/L (21-72) 03/15/17 07:11 Alkaline Phosphatase 51 U/L (38-126) 03/15/17 07:11 Troponin I 0.0240 ng/mL (0.00-0.120) 03/15/17 07:11 Total Protein 8.1 g/dL (6.3-8.3) 03/15/17 07:11 Albumin 4.1 g/dL (3.5-5.0) 03/15/17 07:11 Globulin 4.0 gm/dL (2.2-3.9) H 03/15/17 07:11 Albumin/Globulin Ratio 1.0 (1.0-2.1) 03/15/17 07:11 Triglycerides 91 mg/dL (0-149) D 03/15/17 18:28 Cholesterol 174 mg/dL (0-199) 03/15/17 18:28 LDL Cholesterol Direct 82 mg/dL (0-129) 03/15/17 18:28 HDL Cholesterol 65 mg/dL (30-70) 03/15/17 18:28 - Hospital Course Hospital Course: 81 yo male with a brief episode of left arm and leg weakness yesterday which has resolved. Pt. was recently admitted in for similar episode CT/MRI head , carrotids and bubble study for shunt were neg CT shows some thickening of tm in ear NEURO W/U SHOWED ECTATIC L VERT ARTERY PT HAD NO FURTHER TIA SYMPTOMS PT NOW D/C ON DAPT ,ASA+PLAVIX Discharge Exam - Head Exam Head Exam: ATRAUMATIC, NORMAL INSPECTION, NORMOCEPHALIC Discharge Plan - Follow Up Plan Condition: STABLE Disposition: HOME/ ROUTINE
[2017-03-18] MEDS ORDERED: Enoxaparin 40 mg Syringe SC SCH (14:30)
[2017-03-18 16:06] VITALS: BP 138/82; TEMP 97.8
[2017-03-18 22:58] VITALS: PULSE 79
== END 2017-03-18 19:16 | disposition home or self-care (01) | DRG 69 ==
LOC: C.ER 06:14 → UNDOADMOB 09:03 → C.9E 09:03 → C.6T 16:15 → INTOOBSV 16:49 → OBSVTOIN 16:49 → C.6T 03-17 05:48
PROVIDERS: ADMIT Internal Medicine Cardiovascular Disease; ATTEND Internal Medicine Cardiovascular Disease
DX: G45.9 Transient cerebral ischemic attack, unspecified (principal); C81.90 Hodgkin lymphoma, unspecified, unspecified site; I42.9 Cardiomyopathy, unspecified; I10 Essential (primary) hypertension; Z86.73 Personal history of transient ischemic attack (TIA), and cerebral infarction without residual deficits; Z87.891 Personal history of nicotine dependence

== ENCOUNTER 2017-04-02 13:11 | Emergency (ER) | payer MEDICARE ==
[2017-04-02 13:11] VITALS: BMI 24.1
[2017-04-02 13:18] VITALS: TEMP 97.4; O2SAT 99
--- NOTE | 2017-04-02 13:56 | C.PDOC ---
History Of Present Illness 81 y/o male with PMHx of Stroke and TIA presents to ED with complaints of dizziness since this morning. Patient reports today he woke up turned head and felt dizzy but does not recall "spinning sensation nor passing out sensation". Patient was able to ambulate through house but continue to feel dizzy which prompted visit to ED today. Patient was seen on 03/15 for facial droop and lack of coordination, was admitted for observation and had negative CT scan, discharged and advised to follow up with PMD. Patient denies loc, chest pain,sob , weakness, headache or any other complaints at this time. Time Seen by Provider: 04/02/17 13:31 Chief Complaint (Nursing): Dizziness/Lightheaded History Per: Patient History/Exam Limitations: no limitations Onset/Duration Of Symptoms: Days Current Symptoms Are (Timing): Still Present Activity At Onset Of Symptoms: Lying Past Medical History Reviewed: Historical Data, Nursing Documentation, Vital Signs Vital Signs: Last Vital Signs Temp 97.4 F L 04/02/17 13:16 Pulse 89 04/02/17 13:16 Resp 18 04/02/17 13:16 BP 164/94 H 04/02/17 13:16 Pulse Ox 99 04/02/17 15:34 - Medical History PMH: Anemia, CVA, Diverticulitis, HTN, Malignancy (Left Shoulder Lymphoma), TIA Surgical History: Cholecystectomy - [facility] Procedures ESOPHAGOGASTRODUODENOSCOPY [EGD] W/CLOSED BIOPSY (04/20/13) FLUOROSCOPY OF GALLBLADDER USING LOW OSMOLAR CONTRAST (04/18/16) ING HERNIA REP-GRAFT NOS (09/26/12) OTHER ENDOSCOPY OF SM INTEST (08/27/14) PACKED CELL TRANSFUSION (09/26/12) RESECTION OF GALLBLADDER, PERCUTANEOUS ENDOSCOPIC APPROACH (04/18/16) Family History: States: No Known Family Hx - Social History Hx Tobacco Use: No Hx Alcohol Use: No Hx Substance Use: No - Immunization History Hx Tetanus Toxoid Vaccination: No Hx Influenza Vaccination: No Hx Pneumococcal Vaccination: No Review Of Systems Constitutional: Negative for: Fever, Chills Cardiovascular: Negative for: Chest Pain Respiratory: Negative for: Shortness of Breath Gastrointestinal: Negative for: Nausea, Vomiting Skin: Negative for: Rash Neurological: Positive for: Dizziness. Negative for: Weakness, Numbness, Headache Physical Exam - Physical Exam Appears: Non-toxic, No Acute Distress Skin: Warm, Dry, No Rash Head: Atraumatic, Normacephalic Eye(s): bilateral: Normal Inspection Oral Mucosa: Moist Neck: Supple Cardiovascular: Rhythm Regular Respiratory: Normal Breath Sounds, No Accessory Muscle Use, No Rales, No Rhonchi , No Wheezing Gastrointestinal/Abdominal: Soft, No Tenderness, No Guarding, No Rebound Extremity: Normal ROM, Capillary Refill (<2 seconds) Neurological/Psych: Oriented x3, Normal Speech, Normal Cranial Nerves, Normal Motor, Normal Sensation Gait: Steady ED Course And Treatment - Laboratory Results Result Diagrams: 04/02/17 13:49 04/02/17 13:49 Lab Interpretation: No Acute Changes ECG: Interpreted By Co ECG Rhythm: Sinus Rhythm (with left axis deviation), Nonspecific Changes (T wave changes) O2 Sat by Pulse Oximetry: 99 (RA) Pulse Ox Interpretation: Normal - CT Scan/US CT Head Other Rad Studies (CT/US): Read By Radiologist, Radiology Report Reviewed CT/US Interpretation: FINDINGS: HEMORRHAGE: No intracranial hemorrhage. BRAIN : Diffuse atrophy with prominence of the ventricles and sulci noted. No mass effect or edema. Intracranial atherosclerosis. Scattered white matter hypodensities, which are nonspecific, but often seen with chronic microvascular ischemic disease. Please note that MRI with diffusion imaging is more sensitive in the detection of acute ischemic event. VENTRICLES: No hydrocephalus. CALVARIUM: Unremarkable. PARANASAL SINUSES: Partial opacification of the left anterior ethmoid air cells. No air-fluid levels. MASTOID AIR CELLS: Unremarkable as visualized. No inflammatory changes. OTHER FINDINGS: Partial opacification of the left external auditory canal, likely cerumen. IMPRESSION: Generalized atrophy. Nonspecific white matter changes. Additional findings as above. Reevaluation Time: 15:52 Reassessment Condition: Improved (Patient remains comfortable and is currently asymptomatic.) Disposition Counseled Patient/Family Regarding: Studies Performed, Diagnosis, Need For Followup - Disposition Referrals: Peter Forde MD [Medical Doctor] - Mukul Leach MD [Staff Provider] - Disposition: HOME/ ROUTINE Disposition Time: 15:54 Condition: STABLE Instructions: Dizziness (ED) Forms: [facility] (Maltese) - Clinical Impression Clinical Impression: Dizziness - Scribe Statement The provider has reviewed the documentation as recorded by the Scribe Lisa Valverde All medical record entries made by the Scribe were at my direction and personally dictated by me. I have reviewed the chart and agree that the record accurately reflects my personal performance of the history, physical exam, medical decision making, and the department course for this patient. I have also personally directed, reviewed, and agree with the discharge instructions and disposition.
[2017-04-02 13:59] LABS: BASO % 0.5 % (0.0-2.0); EOS # 0.1 K/uL (0.0-0.7); EOS % 2.5 % (0.0-4.0); HEMOGLOBIN 12.4 g/dL (12.0-18.0); LYMPH # 0.7 K/uL (1.0-4.3); LYMPH % 14.6 % (20.0-40.0); MEAN CELL VOLUME 104.1 fL (80.0-94.0); MEAN CORPUSCULAR HEMOGLOBIN 34.6 pg (27.0-31.0); MEAN CORPUSCULAR HGB CONC 33.3 g/dL (33.0-37.0); MEAN PLATELET VOLUME 8.6 fL (7.2-11.7); MONO # 0.5 K/uL (0.0-0.8); MONO % 10.4 % (0.0-10.0); NEUT # 3.4 K/uL (1.8-7.0); NRBC % 0.1 % (0.0-2.0); RBC 3.57 Mil/uL (4.40-5.90); WHITE BLOOD COUNT 4.7 K/uL (4.8-10.8)
[2017-04-02 14:06] LABS: ALB/GLOB RATIO 1.8 (1.0-2.1); ALBUMIN 4.2 g/dL (3.5-5.0); ALT/SGPT 37 U/L (21-72); AST/SGOT 28 U/L (17-59); BLOOD UREA NITROGEN 16 mg/dL (9-20); CALCIUM 8.8 mg/dl (8.6-10.4); GFR AFRICAN-AMERICAN > 60; GFR NON-AFRICAN AMERICAN > 60; MAGNESIUM 1.8 mg/dL (1.6-2.3)
[2017-04-02 14:09] LABS: URINE BILIRUBIN NEGATIVE (NEGATIVE); URINE BLOOD NEGATIVE (NEGATIVE); URINE CLARITY Clear (Clear); URINE COLOR Yellow (YELLOW); URINE GLUCOSE (UA) NORMAL (Normal); URINE LEUKOCYTE ESTERASE NEG Leu/uL (Negative); URINE NITRATE NEGATIVE (NEGATIVE); URINE PROTEIN NEGATIVE (NEGATIVE); URINE UROBILINOGEN NORMAL mg/dL (0.2-1.0)
--- NOTE | 2017-04-02 15:28 | CT ---
PROCEDURE: CT HEAD WITHOUT CONTRAST. HISTORY: R/O Bleed COMPARISON: Noncontrast head CT performed 03/15/17 TECHNIQUE: Axial computed tomography images were obtained through the head/brain without intravenous contrast. Radiation dose: Total exam DLP = 752.32 mGy-cm. This CT exam was performed using one or more of the following dose reduction techniques: Automated exposure control, adjustment of the mA and/or kV according to patient size, and/or use of iterative reconstruction technique. FINDINGS: HEMORRHAGE: No intracranial hemorrhage. BRAIN: Diffuse atrophy with prominence of the ventricles and sulci noted. No mass effect or edema. Intracranial atherosclerosis. Scattered white matter hypodensities, which are nonspecific, but often seen with chronic microvascular ischemic disease. Please note that MRI with diffusion imaging is more sensitive in the detection of acute ischemic event. VENTRICLES: No hydrocephalus. CALVARIUM: Unremarkable. PARANASAL SINUSES: Partial opacification of the left anterior ethmoid air cells. No air-fluid levels. MASTOID AIR CELLS: Unremarkable as visualized. No inflammatory changes. OTHER FINDINGS: Partial opacification of the left external auditory canal, likely cerumen. IMPRESSION: Generalized atrophy. Nonspecific white matter changes. Additional findings as above.
[2017-04-02 16:21] VITALS: BP 126/75; PULSE 78; RESP 20
--- NOTE | 2017-04-03 15:09 | CARD ---
APPROVED REPORT EKG Measurement Heart [id number] NM [id number] <Conclusion> Normal sinus rhythm Left axis deviation Nonspecific T wave abnormality Abnormal ECG
== END 2017-04-02 16:21 | disposition home or self-care (01) ==
LOC: C.ER 13:11
DX: R42 Dizziness and giddiness (principal); I10 Essential (primary) hypertension; Z86.73 Personal history of transient ischemic attack (TIA), and cerebral infarction without residual deficits

== ENCOUNTER 2017-07-31 07:10 | Day surgery (SDC) | payer MEDICARE ==
[2017-07-31 07:50] VITALS: BMI 23.8
[2017-07-31 08:03] VITALS: O2SAT 100
[2017-07-31] MEDS ORDERED: Etomidate 20 mg/10ml Inj IV ONE (08:54)
[2017-07-31] MEDS ORDERED: Propofol 10 mg/ml Inj (20 ML) ONE (08:54)
[2017-07-31] MEDS ORDERED: Lidocaine Hydrochloride 5 ML INJ ONE (08:54)
--- NOTE | 2017-07-31 08:54 | CP.SDSHP ---
Same Day Surgery H & P - History Proposed Procedure: EGD Pre-Op Diagnosis: SEE NOTES - Previous Medical/Surgical History Cardiac: Hypertension Endocrine/Metabolic: Other Neuro: TIA/CVA Misc: Other Previous Surgical History: G.B. / HAS LYMPHOMA - Allergies Allergies: Allergies No Known Allergies Allergy (Verified 04/02/17 13:18) - Physical Exam General Appearance: N Vital Signs: Vital Signs 07/31/17 07:53 Temperature 97.8 F Pulse Rate 67 Respiratory 19 Rate Blood Pressure 122/60 O2 Sat by Pulse 100 Oximetry Mental Status: Alert & Oriented x3 Neuro: WNL Heart: Other Lungs: WNL GI: Other - {Optional Preform as Required} Breast: WNL Abdomen: Other Rectal: Other Integument: WNL : Other Ortho: Other ENT: WNL - Impression Pt. Evaluated Today:Candidate for Anesthesia & Procedure: Yes - Date & Time Time: 08:54 Short Stay Discharge - Short Stay Discharge Admitting Diagnosis/Reason for Visit: DYSPHAGIA, PHARYNGOESOPHAGEAL PHASE Disposition: HOME/ ROUTINE
[2017-07-31] MEDS ORDERED: Lactated Ringer's 1,000 ML IV ONE (09:00)
[2017-07-31 09:27] VITALS: TEMP 98.2
[2017-07-31] MEDS ORDERED: Belladonna-Phenobarbital PO ONE (09:30)
[2017-07-31] MEDS ORDERED: Sucralfate 1 gm/10 ml Oral Susp UD PO ONE (09:40)
[2017-07-31 10:27] VITALS: BP 139/71; PULSE 60; RESP 10
== END 2017-07-31 10:45 | disposition home or self-care (01) ==
LOC: C.ENDO 07:10
PROVIDERS: ATTEND Specialist
DX: R13.14 Dysphagia, pharyngoesophageal phase (principal); R11.2 Nausea with vomiting, unspecified; K22.2 Esophageal obstruction; K44.9 Diaphragmatic hernia without obstruction or gangrene; K21.0 Gastro-esophageal reflux disease with esophagitis; K29.70 Gastritis, unspecified, without bleeding; I10 Essential (primary) hypertension; Z86.73 Personal history of transient ischemic attack (TIA), and cerebral infarction without residual deficits

== ENCOUNTER 2017-08-12 06:30 | Day surgery (SDC) | payer MEDICARE ==
--- NOTE | 2017-08-12 07:50 | CP.SDSHP ---
Same Day Surgery H & P - History Proposed Procedure: EGD/ DILATION Pre-Op Diagnosis: SEE NOTES - Previous Medical/Surgical History Cardiac: Hypertension, ASHD/CAD Misc: Other Pain: 4.Moderate Pain Previous Surgical History: EGD - Allergies Allergies: Allergies No Known Allergies Allergy (Verified 08/12/17 06:48) - Physical Exam General Appearance: N Vital Signs: Vital Signs 08/12/17 06:40 Temperature 97.8 F Pulse Rate 70 Respiratory 19 Rate Blood Pressure 135/68 O2 Sat by Pulse 98 Oximetry Mental Status: Alert & Oriented x3 Neuro: WNL Heart: Other Lungs: WNL GI: Other - {Optional Preform as Required} Breast: WNL Abdomen: Other Rectal: Other Integument: WNL : WNL Ortho: Other ENT: WNL - Impression Pt. Evaluated Today:Candidate for Anesthesia & Procedure: Yes - Date & Time Time: 07:50 Short Stay Discharge - Short Stay Discharge Admitting Diagnosis/Reason for Visit: DILATATION Disposition: HOME/ ROUTINE
[2017-08-12] MEDS ORDERED: Midazolam 2 MG/2 ML VIAL ONE (07:59)
[2017-08-12] MEDS ORDERED: Propofol 10 mg/ml Inj (20 ML) ONE (08:00)
[2017-08-12] MEDS ORDERED: Lidocaine Hydrochloride 5 ML INJ ONE (08:03)
[2017-08-12] MEDS ORDERED: ePHEDrine 50 mg/ml Inj ONE (08:07)
[2017-08-12 08:26] VITALS: TEMP 97
[2017-08-12] MEDS ORDERED: Sucralfate 1 gm/10 ml Oral Susp UD PO ONE (08:35)
[2017-08-12 09:47] VITALS: BP 138/73; PULSE 14; RESP 20; O2SAT 97
== END 2017-08-12 09:20 | disposition home or self-care (01) ==
LOC: C.ENDO 06:30
PROVIDERS: ATTEND Specialist
DX: K20.8 Other esophagitis (principal); K44.9 Diaphragmatic hernia without obstruction or gangrene
CPT/HCPCS: 43235; C1726; J2250; J2704; J3010

== ENCOUNTER 2018-01-13 13:47 | Emergency (ER) | payer MEDICARE ==
[2018-01-13 13:47] VITALS: BMI 23.8
[2018-01-13 14:42] VITALS: TEMP 97.9
[2018-01-13] MEDS ORDERED: Sodium Chloride 0.9% 1,000 ML IV STA (14:57)
[2018-01-13 15:11] LABS: BASO % 0.4 % (0.0-2.0); EOS % 0.5 % (0.0-4.0); HEMOGLOBIN 13.1 g/dL (12.0-18.0); LYMPH # 0.9 K/uL (1.0-4.3); LYMPH % 13.1 % (20.0-40.0); MEAN CELL VOLUME 102.3 fL (80.0-94.0); MEAN CORPUSCULAR HEMOGLOBIN 34.2 pg (27.0-31.0); MEAN CORPUSCULAR HGB CONC 33.4 g/dL (33.0-37.0); MEAN PLATELET VOLUME 9.6 fL (7.2-11.7); MONO # 0.5 K/uL (0.0-0.8); MONO % 8.1 % (0.0-10.0); NEUT # 5.1 K/uL (1.8-7.0); NEUT % 77.9 % (50.0-75.0); NRBC % 0.3 % (0.0-2.0); RBC 3.83 Mil/uL (4.40-5.90); RED CELL DISTRIBUTION WIDTH 15.5 % (11.5-14.5); WHITE BLOOD COUNT 6.5 K/uL (4.8-10.8)
[2018-01-13 15:32] LABS: ALB/GLOB RATIO 2.1 (1.0-2.1); ALBUMIN 4.7 g/dL (3.5-5.0); ALT/SGPT 27 U/L (21-72); AST/SGOT 27 U/L (17-59); BLOOD UREA NITROGEN 20 mg/dL (9-20); CALCIUM 9.5 mg/dl (8.6-10.4); GFR NON-AFRICAN AMERICAN 58
[2018-01-13] MEDS ORDERED: Sodium Chloride 0.9% 1,000 ML ONE (15:35)
[2018-01-13 15:46] LABS: CK-MB 1.24 ng/mL (0.0-3.38)
--- NOTE | 2018-01-13 15:49 | C.PDOC ---
History Of Present Illness 82 y/o male presents to the ED with complaints of chest pain x 2 weeks. Patient is not able to characterize symptoms further. Pain is constant, non-radiating, and localized to the lower mid-sternum. Not associated with SOB, nausea, v omiting, diaphoresis, leg swelling, recent travel, or difficulty swallowing. Patient also reports soft stool as of yesterday. PMHx is significant for Non- Hodgkins lymphoma, for which patient is being treated at [place]. Patient recently had a PET scan performed in the last few days, and is awaiting results. He reports feeling anxious, and is concerned for recurrence of cancer. Time Seen by Provider: 01/13/18 14:08 Chief Complaint (Nursing): Chest Pain History Per: Patient History/Exam Limitations: no limitations Onset/Duration Of Symptoms: Days (x14) Current Symptoms Are (Timing): Still Present Alleviating Factors: None Past Medical History Reviewed: Historical Data, Nursing Documentation, Vital Signs Vital Signs: Last Vital Signs Temp 97.9 F 01/13/18 14:13 Pulse 83 01/13/18 14:13 Resp 18 01/13/18 14:13 BP 159/84 H 01/13/18 14:13 Pulse Ox 98 01/13/18 14:13 - Medical History PMH: Anemia, CVA, Diverticulitis, Gall Bladder Disease, HTN, Malignancy (Left Shoulder Lymphoma), TIA Denies: Chronic Kidney Disease Surgical History: Cholecystectomy, Endoscopy - [facility] Procedures ESOPHAGOGASTRODUODENOSCOPY [EGD] W/CLOSED BIOPSY (04/20/13) FLUOROSCOPY OF GALLBLADDER USING LOW OSMOLAR CONTRAST (04/18/16) ING HERNIA REP-GRAFT NOS (09/26/12) OTHER ENDOSCOPY OF SM INTEST (08/27/14) PACKED CELL TRANSFUSION (09/26/12) RESECTION OF GALLBLADDER, PERCUTANEOUS ENDOSCOPIC APPROACH (04/18/16) Family History: States: Unknown Family Hx - Social History Hx Tobacco Use: No Hx Alcohol Use: No Hx Substance Use: No - Immunization History Hx Tetanus Toxoid Vaccination: No Hx Influenza Vaccination: Yes Hx Pneumococcal Vaccination: Yes Review Of Systems Except As Marked, All Systems Reviewed And Found Negative. Constitutional: Negative for: Fever, Sweats ENT: Negative for: Nose Congestion Cardiovascular: Positive for: Chest Pain. Negative for: Palpitations Respiratory: Negative for: Cough, Shortness of Breath Gastrointestinal: Negative for: Nausea, Vomiting Musculoskeletal: Negative for: Leg Pain (or swelling) Neurological: Negative for: Weakness, Numbness, Dizziness Physical Exam - Physical Exam Additional Physical Exam Comments: Constitutional: No acute distress. Head: Normocephalic. Atraumatic. Eyes: PERRL. ENT: Moist mucous membranes. Neck: Supple. Cardiovascular: Regular rate. Radial pulse 2+ bilaterally. Chest: No tenderness. Respiratory: Clear to auscultation bilaterally. GI: Soft. Nontender. Nondistended. Back: No CVA tenderness. Musculoskeletal: No tenderness or swelling of extremities. Skin: No rash. Neurologic: Alert, no focal deficit. ED Course And Treatment - Laboratory Results Result Diagrams: 01/13/18 15:07 01/13/18 15:07 ECG: Interpreted By Me ECG Rhythm: Sinus Rhythm Interpretation Of ECG: no ST/T wave changes Rate From EC O2 Sat by Pulse Oximetry: 98 (RA) Pulse Ox Interpretation: Normal - Other Rad CXR X-Ray: Viewed By Me, Read By Radiologist Interpretation: FINDINGS: Right-sided MediPort extends to the right atrium. LUNGS: No focal consolidation. Please note that chest x-ray has limited sensitivity for the detection of pulmonary masses. PLEURA: No significant pleural effusion identified. No definite pneumothorax . CARDIOVASCULAR: Cardiomegaly. Atherosclerotic calcification present. OSSEOUS STRUCTURES: Degenerative changes. Chronic appearing left rib fracture deformity. VISUALIZED UPPER ABDOMEN: Cholecystectomy clips. Elevated right hemidiaphragm. OTHER FINDINGS: None. IMPRESSION: Right-sided MediPort extends to the right atrium. Cardiomegaly. Atherosclerotic calcification of the aorta. Elevated right hemidiaphragm. Cholecystectomy clips. Medical Decision Making Medical Decision Making: Impression: 82 y/o M with chest pain x 2 weeks Initial Plan: --Blood work --CXR --IV fluids Informed patient that ER evaluation will rule out emergent diagnoses, but for further ongoing cancer monitoring he will require regular follow-up with his oncologist at [place]. Labs and CXR unremarkable. Will discharge, f/u PMD/private oncologist, return to ED for worsening breathing, pain, fever, or any other problem. Disposition - Disposition Referrals: Peter Forde MD [Medical Doctor] - Disposition: HOME/ ROUTINE Disposition Time: 16:42 Condition: STABLE Instructions: Diarrhea in Adolescents and Adults Forms: [email or web address] (Japanese) - Clinical Impression Clinical Impression: Chest pain, Diarrhea - Scribe Statement The provider has reviewed the documentation as recorded by the Scribe (Isaura Daily) Provider Attestation: All medical record entries made by the Scribe were at my direction and personally dictated by me. I have reviewed the chart and agree that the record accurately reflects my personal performance of the history, physical exam, medical decision making, and the department course for this patient. I have also personally directed, reviewed, and agree with the discharge instructions and disposition.
--- NOTE | 2018-01-13 15:53 | RAD ---
HISTORY: chest pain COMPARISON: Chest x-ray performed 03/15/17 TECHNIQUE: Chest PA and lateral FINDINGS: Right-sided MediPort extends to the right atrium. LUNGS: No focal consolidation. Please note that chest x-ray has limited sensitivity for the detection of pulmonary masses. PLEURA: No significant pleural effusion identified. No definite pneumothorax . CARDIOVASCULAR: Cardiomegaly. Atherosclerotic calcification present. OSSEOUS STRUCTURES: Degenerative changes. Chronic appearing left rib fracture deformity. VISUALIZED UPPER ABDOMEN: Cholecystectomy clips. Elevated right hemidiaphragm. OTHER FINDINGS: None. IMPRESSION: Right-sided MediPort extends to the right atrium. Cardiomegaly. Atherosclerotic calcification of the aorta. Elevated right hemidiaphragm. Cholecystectomy clips.
[2018-01-13 16:25] VITALS: BP 163/83; PULSE 75; RESP 13
[2018-01-13 16:43] VITALS: O2SAT 98
--- NOTE | 2018-01-14 19:44 | CARD ---
APPROVED REPORT Date of service: 01/13/2018 EKG Measurement Heart [id number] <Conclusion> Normal sinus rhythm Left axis deviation Incomplete right bundle branch block Abnormal ECG
== END 2018-01-13 17:11 | disposition home or self-care (01) ==
LOC: C.ER 13:47
DX: R07.9 Chest pain, unspecified (principal); R19.7 Diarrhea, unspecified; I10 Essential (primary) hypertension; Z86.73 Personal history of transient ischemic attack (TIA), and cerebral infarction without residual deficits
CPT/HCPCS: 71046; 80053; 82550; 82553; 84484; 85025; 93005; 96360; 99285; J7030

== ENCOUNTER 2018-04-22 09:46 | Emergency (ER) | payer MEDICARE ==
[2018-04-22 09:46] VITALS: BMI 23.8
[2018-04-22] MEDS ORDERED: Sodium Chloride 0.9% 1,000 ML IV ONE (10:07)
--- NOTE | 2018-04-22 10:18 | C.PDOC ---
History Of Present Illness 82 y/o male presents to the ER complaining of right sided flank pain which has been present for the past 2-3 days. Patient states that he has associated nausea. Patient is concerned that he may have an infection.Denies having fever, chills, vomiting, dysuria, and hematuria. Time Seen by Provider: 04/22/18 09:55 Chief Complaint (Nursing): Back Pain History Per: Patient History/Exam Limitations: no limitations Onset/Duration Of Symptoms: Days Current Symptoms Are (Timing): Still Present Severity: Moderate Past Medical History Reviewed: Historical Data, Nursing Documentation, Vital Signs Vital Signs: Last Vital Signs Temp 98.1 F 04/22/18 09:51 Pulse 86 04/22/18 09:51 Resp 18 04/22/18 09:51 BP 149/87 04/22/18 09:51 Pulse Ox 98 04/22/18 09:51 - Medical History PMH: Anemia, CVA, Diverticulitis, Gall Bladder Disease, HTN, Malignancy (Left Shoulder Lymphoma), TIA Denies: Chronic Kidney Disease Surgical History: Cholecystectomy, Endoscopy - [facility] Procedures ESOPHAGOGASTRODUODENOSCOPY [EGD] W/CLOSED BIOPSY (04/20/13) FLUOROSCOPY OF GALLBLADDER USING LOW OSMOLAR CONTRAST (04/18/16) ING HERNIA REP-GRAFT NOS (09/26/12) OTHER ENDOSCOPY OF SM INTEST (08/27/14) PACKED CELL TRANSFUSION (09/26/12) RESECTION OF GALLBLADDER, PERCUTANEOUS ENDOSCOPIC APPROACH (04/18/16) Family History: States: No Known Family Hx - Social History Hx Tobacco Use: No Hx Alcohol Use: No Hx Substance Use: No - Immunization History Hx Tetanus Toxoid Vaccination: No Hx Influenza Vaccination: No Hx Pneumococcal Vaccination: No Review Of Systems Except As Marked, All Systems Reviewed And Found Negative. Constitutional: Negative for: Fever, Chills Gastrointestinal: Positive for: Nausea, Other (flank pain). Negative for: Vomiting Genitourinary: Negative for: Dysuria, Hematuria Physical Exam - Physical Exam Appears: Non-toxic, No Acute Distress Skin: Normal Color, Warm, Dry Head: Atraumatic, Normacephalic Eye(s): bilateral: Normal Inspection Nose: Normal Oral Mucosa: Moist Neck: Supple Chest: Symmetrical Cardiovascular: Rhythm Regular Respiratory: Normal Breath Sounds, No Rales, No Rhonchi, No Wheezing Gastrointestinal/Abdominal: Normal Exam, Soft, No Tenderness, No Guarding, No Rebound Neurological/Psych: Oriented x3, Normal Speech ED Course And Treatment - Laboratory Results Result Diagrams: 04/22/18 10:17 04/22/18 10:17 Lab Interpretation: Normal O2 Sat by Pulse Oximetry: 98 (RA) Pulse Ox Interpretation: Normal - CT Scan/US CT-Abd & Pelv. Other Rad Studies (CT/US): Read By Radiologist, Radiology Report Reviewed CT/US Interpretation: Date of service: 04/22/2018. PROCEDURE: CT Abdomen and Pelvis without intravenous contrast. HISTORY: Pain. COMPARISON: 05/23/2016. TECHNIQUE: Without contrast.. Contrast dose: 0. Radiation dose: Total exam DLP = 278.31 mGy-cm. This CT exam was performed using one or more of the following dose reduction techniques: Automated exposure control, adjustment of the mA and/or kV according to patient size, and/or use of iterative reconstruction technique. FINDINGS: LOWER THORAX: No infiltrate/effusion. Subcentimeter epicardial node identified in the right epicardial fat pad. Small hiatal hernia. There is an 8 mm node seen adjacent to the herniated portion of the stomach consider evaluation with endoscopy to exclude gastric neoplasm. LIVER: Unremarkable. No gross lesion or ductal dilatation. GALLBLADDER AND BI LE DUCTS: Cholecystectomy. PANCREAS: Unremarkable. No gross lesion or ductal dilatation. SPLEEN: Unremarkable. ADRENALS: Unremarkable. No mass. KIDNEYS AND URETERS: Right lower pole renal cortical cyst 1.6 cm unchanged from prior CT. No other mass. No calculus or hydronephrosis. VASCULATURE: Unremarkable. No aortic aneurysm. There is atherosclerotic calcification of the abdominal aorta. BOWEL: Sigmoid diverticulosis. No evidence of diverticulitis. No bowel obstruction. Scattered diverticula elsewhere. APPENDIX: Unremarkable. Normal appendix. PERITONEUM: No ascites or pneumoperitoneum. There is a right inguinal hernia containing only mesenteric fat. The patient is status post left inguinal herniorrhaphy with residual mesh identified. LYMPH NODES: Unremarkable. No enlarged lymph nodes. BLADDER: Unremarkable. REPRODUCTIVE: Radiation seed implants in prostate bed. BONES: No acute fracture. Multilevel lumbar degenerative disc disease. OTHER FINDINGS: None. IMPRESSION: Hiatal hernia. Of note is a subcentimeter node adjacent to the herniated portion of the stomach. This raises suspicion of a gastric neoplasm and evaluation with upper endoscopy is suggested. Sigmoid diverticulosis without evidence of diverticulitis status post cholecystectomy. Radiation seed implants in prostate bed. Additional minor findings as above. Progress Note: Treated with IVF NSS. On re-evaluation abdomen soft non-tender. Patient provided with copy of CT results and instructed to follow up with GI for further evaluation Reassessment Condition: Improved Medical Decision Making Medical Decision Making: Plan: --Labs --UA --CT-Abd & Pelv. 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 - Scribe Statement The provider has reviewed the documentation as recorded by the Janelleibamilcar Randall Provider Attestation All medical record entries made by the Scribe were at my direction and personally dictated by me. I have reviewed the chart and agree that the record accurately reflects my personal performance of the history, physical exam, medical decision making, and the department course for this patient. I have also personally directed, reviewed, and agree with the discharge instructions and disposition.
[2018-04-22] MEDS ORDERED: Sodium Chloride 0.9% 1,000 ML ONE (10:20)
[2018-04-22 10:32] LABS: SQUAMOUS EPITHIAL < 1 /hpf (0-5); URINE BILIRUBIN NEGATIVE (NEGATIVE); URINE BLOOD NEGATIVE (NEGATIVE); URINE CLARITY Clear (Clear); URINE COLOR Yellow (YELLOW); URINE GLUCOSE (UA) NORMAL (Normal); URINE LEUKOCYTE ESTERASE NEG Leu/uL (Negative); URINE PROTEIN 1+ mg/dL (NEGATIVE); URINE UROBILINOGEN NORMAL mg/dL (0.2-1.0)
[2018-04-22 10:36] LABS: BASO % 0.3 % (0.0-2.0); EOS # 0.1 K/uL (0.0-0.7); HEMOGLOBIN 14.2 g/dL (12.0-18.0); LYMPH # 0.7 K/uL (1.0-4.3); LYMPH % 11.5 % (20.0-40.0); MEAN CORPUSCULAR HEMOGLOBIN 34.3 pg (27.0-31.0); MEAN PLATELET VOLUME 9.3 fL (7.2-11.7); MONO # 0.5 K/uL (0.0-0.8); MONO % 9.2 % (0.0-10.0); NEUT # 4.6 K/uL (1.8-7.0); RBC 4.16 Mil/uL (4.40-5.90); RED CELL DISTRIBUTION WIDTH 15.2 % (11.5-14.5); WHITE BLOOD COUNT 5.9 K/uL (4.8-10.8)
[2018-04-22 10:47] LABS: ALT/SGPT 25 U/L (21-72); AST/SGOT 35 U/L (17-59); BLOOD UREA NITROGEN 17 mg/dL (9-20); CALCIUM 9.6 mg/dl (8.6-10.4); GFR NON-AFRICAN AMERICAN 58; LIPASE 27 U/L (23-300)
--- NOTE | 2018-04-22 11:55 | CT ---
Date of service: 04/22/2018 PROCEDURE: CT Abdomen and Pelvis without intravenous contrast HISTORY: Pain COMPARISON: 05/23/2016 TECHNIQUE: Without contrast.. Contrast dose: 0 Radiation dose: Total exam DLP = 278.31 mGy-cm. This CT exam was performed using one or more of the following dose reduction techniques: Automated exposure control, adjustment of the mA and/or kV according to patient size, and/or use of iterative reconstruction technique. FINDINGS: LOWER THORAX: No infiltrate/effusion. Subcentimeter epicardial node identified in the right epicardial fat pad. Small hiatal hernia. There is an 8 mm node seen adjacent to the herniated portion of the stomach consider evaluation with endoscopy to exclude gastric neoplasm LIVER: Unremarkable. No gross lesion or ductal dilatation. GALLBLADDER AND BILE DUCTS: Cholecystectomy PANCREAS: Unremarkable. No gross lesion or ductal dilatation. SPLEEN: Unremarkable. ADRENALS: Unremarkable. No mass. KIDNEYS AND URETERS: Right lower pole renal cortical cyst 1.6 cm unchanged from prior CT. No other mass. No calculus or hydronephrosis. VASCULATURE: Unremarkable. No aortic aneurysm. There is atherosclerotic calcification of the abdominal aorta BOWEL: Sigmoid diverticulosis. No evidence of diverticulitis. No bowel obstruction. Scattered diverticula elsewhere. APPENDIX: Unremarkable. Normal appendix. PERITONEUM: No ascites or pneumoperitoneum. There is a right inguinal hernia containing only mesenteric fat. The patient is status post left inguinal herniorrhaphy with residual mesh identified. LYMPH NODES: Unremarkable. No enlarged lymph nodes. BLADDER: Unremarkable. REPRODUCTIVE: Radiation seed implants in prostate bed. BONES: No acute fracture. Multilevel lumbar degenerative disc disease. OTHER FINDINGS: None. IMPRESSION: Hiatal hernia. Of note is a subcentimeter node adjacent to the herniated portion of the stomach. This raises suspicion of a gastric neoplasm and evaluation with upper endoscopy is suggested. Sigmoid diverticulosis without evidence of diverticulitis status post cholecystectomy. Radiation seed implants in prostate bed. Additional minor findings as above.
[2018-04-22 12:18] VITALS: BP 128/70; PULSE 69; RESP 20; TEMP 97.8; O2SAT 96
== END 2018-04-22 12:30 | disposition home or self-care (01) ==
LOC: C.ER 09:46
DX: R10.9 Unspecified abdominal pain (principal)
CPT/HCPCS: 74176; 80053; 81001; 83690; 85025; 87086; 96360; 99285; J7030

== ENCOUNTER 2018-04-29 05:54 | Emergency (ER) | payer MEDICARE ==
--- NOTE | 2018-04-29 06:07 | C.PDOC ---
History Of Present Illness The patient presents to the ED for evaluation of lightheadedness and dizziness which began prior to arrival. Patient reports his symptoms are worse with lying down. He denies vision change, tinnitus, chest pain, palpitations, nausea, vomiting. Time Seen by Provider: 04/29/18 06:06 History Per: Patient History/Exam Limitations: no limitations Onset/Duration Of Symptoms: Hrs Current Symptoms Are (Timing): Still Present Severity: Mild Pain Scale Rating Of: 2 Additional History Per: Patient Past Medical History Reviewed: Historical Data, Nursing Documentation, Vital Signs - Medical History PMH: Anemia, CVA, Diverticulitis, Gall Bladder Disease, HTN, Malignancy (Left Shoulder Lymphoma), TIA Denies: Chronic Kidney Disease Surgical History: Cholecystectomy, Endoscopy - [facility] Procedures ESOPHAGOGASTRODUODENOSCOPY [EGD] W/CLOSED BIOPSY (04/20/13) FLUOROSCOPY OF GALLBLADDER USING LOW OSMOLAR CONTRAST (04/18/16) ING HERNIA REP-GRAFT NOS (09/26/12) OTHER ENDOSCOPY OF SM INTEST (08/27/14) PACKED CELL TRANSFUSION (09/26/12) RESECTION OF GALLBLADDER, PERCUTANEOUS ENDOSCOPIC APPROACH (04/18/16) Family History: States: No Known Family Hx - Social History Hx Tobacco Use: No Hx Alcohol Use: No Hx Substance Use: No - Immunization History Hx Tetanus Toxoid Vaccination: No Hx Influenza Vaccination: No Hx Pneumococcal Vaccination: No Review Of Systems Constitutional: Negative for: Fever, Chills Eyes: Negative for: Vision Change ENT: Negative for: Ear Pain, Ear Discharge Cardiovascular: Negative for: Chest Pain, Palpitations Respiratory: Negative for: Cough, Shortness of Breath Gastrointestinal: Negative for: Nausea, Vomiting, Abdominal Pain, Diarrhea, Constipation Skin: Negative for: Rash, Lesions, Jaundice, Bruising Neurological: Positive for: Dizziness, Other (lightheadedness ). Negative for: Weakness, Numbness Physical Exam - Physical Exam Appears: Non-toxic, No Acute Distress Skin: Warm, Dry Head: Normacephalic Eye(s): bilateral: Normal Inspection Oral Mucosa: Moist Neck: Supple Chest: Symmetrical, No Deformity, No Tenderness, Other (port-a-cath to right chest wall ) Cardiovascular: Rhythm Regular, No Murmur Respiratory: No Rales, No Rhonchi, No Wheezing Extremity: Normal ROM, Capillary Refill (less than 2 seconds ) Neurological/Psych: Oriented x3, Other (no focal deficits ) ED Course And Treatment ECG: Interpreted By Me, Viewed By Me O2 Sat by Pulse Oximetry: 97 (on RA) Pulse Ox Interpretation: Normal - Radiology CXR: Interpreted by Me, Viewed By Me CXR Interpretation: Yes: Other (r chest wall port). No: Infiltrates, Fracture, Cardiomegaly, Pnemothorax Progress Note: Bloodwork, urinalysis, CT Head, CXR, EKG ordered and reviewed. Antivert PO given. Disposition Counseled Patient/Family Regarding: Studies Performed, Diagnosis - Disposition Disposition Time: 06:07 Condition: FAIR - Clinical Impression Clinical Impression: Dizziness - Scribe Statement The provider has reviewed the documentation as recorded by the Scribe All medical record entries made by the Scribe were at my direction and personally dictated by me. I have reviewed the chart and agree that the record accurately reflects my personal performance of the history, physical exam, medical decision making, and the department course for this patient. I have also personally directed, reviewed, and agree with the discharge instructions and disposition. Physician Patient Turnover Patient Signed Over To: Christiane Nelson Handoff Comments: pending labs, ct and re-eval
[2018-04-29 06:08] VITALS: BMI 24.1
[2018-04-29 07:11] LABS: BASO % 0.5 % (0.0-2.0); EOS # 0.1 K/uL (0.0-0.7); EOS % 1.9 % (0.0-4.0); LYMPH # 0.7 K/uL (1.0-4.3); LYMPH % 12.1 % (20.0-40.0); MEAN CELL VOLUME 103.4 fL (80.0-94.0); MEAN CORPUSCULAR HEMOGLOBIN 34.5 pg (27.0-31.0); MEAN CORPUSCULAR HGB CONC 33.3 g/dL (33.0-37.0); MEAN PLATELET VOLUME 9.6 fL (7.2-11.7); MONO # 0.5 K/uL (0.0-0.8); MONO % 8.4 % (0.0-10.0); NEUT # 4.5 K/uL (1.8-7.0); NEUT % 77.1 % (50.0-75.0); RBC 3.77 Mil/uL (4.40-5.90); RED CELL DISTRIBUTION WIDTH 15.3 % (11.5-14.5); WHITE BLOOD COUNT 5.9 K/uL (4.8-10.8)
[2018-04-29 07:12] VITALS: RESP 20; O2SAT 95
[2018-04-29 07:22] LABS: INR 1.1; PROTHROMBIN TIME 11.6 SECONDS (9.7-12.2)
[2018-04-29 07:40] LABS: ALB/GLOB RATIO 2.2 (1.0-2.1); ALBUMIN 4.5 g/dL (3.5-5.0); ALT/SGPT 17 U/L (21-72); AST/SGOT 27 U/L (17-59); BLOOD UREA NITROGEN 24 mg/dL (9-20); CALCIUM 9.4 mg/dl (8.6-10.4); GFR NON-AFRICAN AMERICAN > 60
[2018-04-29 07:57] LABS: URINE BILIRUBIN NEGATIVE (NEGATIVE); URINE BLOOD NEGATIVE (NEGATIVE); URINE CLARITY Clear (Clear); URINE COLOR Straw (YELLOW); URINE GLUCOSE (UA) NORMAL (Normal); URINE LEUKOCYTE ESTERASE NEG Leu/uL (Negative); URINE PROTEIN NEGATIVE (NEGATIVE); URINE UROBILINOGEN NORMAL mg/dL (0.2-1.0)
--- NOTE | 2018-04-29 08:37 | CT ---
Date of service: 04/29/2018 PROCEDURE: CT HEAD WITHOUT CONTRAST. HISTORY: R/O Bleed, dizziness COMPARISON: None available. TECHNIQUE: Axial computed tomography images were obtained through the head/brain without intravenous contrast. Radiation dose: Total exam DLP = 924.02 mGy-cm. This CT exam was performed using one or more of the following dose reduction techniques: Automated exposure control, adjustment of the mA and/or kV according to patient size, and/or use of iterative reconstruction technique. FINDINGS: HEMORRHAGE: No intracranial hemorrhage. BRAIN: No mass effect or edema. Scattered focal lucencies in the subcortical and periventricular white matter suggestive for chronic microvascular ischemic change. Diffuse generalized parenchymal atrophy. VENTRICLES: Unremarkable. No hydrocephalus. CALVARIUM: Unremarkable. PARANASAL SINUSES: Mild mucosal thickening with trace fluid level in the left maxillary sinus. Mucosal thickening of the left ethmoid air cells. MASTOID AIR CELLS: Unremarkable as visualized. No inflammatory changes. OTHER FINDINGS: None. IMPRESSION: Diffuse generalized parenchymal atrophy. Chronic microvascular ischemic change. Sinus mucosal disease. If symptoms persists, consider correlation with MRI. A preliminary report was generated at 7:08 a.m. on 04/29/2018 by By Tiffany Das from [employer].
[2018-04-29 08:47] VITALS: BP 142/85; PULSE 71; TEMP 97.9
--- NOTE | 2018-04-29 09:57 | RAD ---
Date of service: 04/29/2018 PROCEDURE: CHEST RADIOGRAPH, 1 VIEW HISTORY: SOB COMPARISON: 01/13/2018 FINDINGS: Right-sided central venous catheter terminates in the right atrium. LUNGS: The lungs are well inflated and clear. PLEURA: No pneumothorax or pleural effusion. CARDIOVASCULAR: The heart is normal in size. There are aortic atherosclerotic calcifications present. OSSEOUS STRUCTURES: There is an old fracture deformity in the left posterior 7th rib. There is degenerative osteoarthrosis in the glenohumeral joints.. VISUALIZED UPPER ABDOMEN: Normal. OTHER FINDINGS: None. IMPRESSION: No acute findings.
--- NOTE | 2018-04-30 12:31 | CARD ---
APPROVED REPORT Date of service: 04/29/2018 EKG Measurement Heart [id number] <Conclusion> Normal sinus rhythm Left axis deviation Prolonged QT Abnormal ECG
== END 2018-04-29 09:06 | disposition home or self-care (01) ==
LOC: C.ER 05:54
DX: R42 Dizziness and giddiness (principal); I10 Essential (primary) hypertension; Z86.73 Personal history of transient ischemic attack (TIA), and cerebral infarction without residual deficits

== ENCOUNTER 2018-06-02 06:45 | Day surgery (SDC) | payer MEDICARE ==
[2018-06-01 09:48] VITALS: BMI 24.7
--- NOTE | 2018-06-02 08:19 | CP.SDSHP ---
Same Day Surgery H & P - Previous Medical/Surgical History Cardiac: Hypertension, ASHD/CAD Endocrine/Metabolic: Other Neuro: Backaches, Other Misc: Other Pain: 4.Moderate Pain - Allergies Allergies: Allergies No Known Allergies Allergy (Verified 04/29/18 06:11) - Physical Exam General Appearance: n Vital Signs: Vital Signs 06/02/18 06/02/18 07:15 08:12 Temperature 98.7 F 98.7 F Pulse Rate 78 78 Respiratory 18 18 Rate Blood Pressure 132/77 132/77 O2 Sat by Pulse 97 100 Oximetry Mental Status: Alert & Oriented x3 Neuro: WNL Heart: Other Lungs: WNL GI: Other - {Optional Preform as Required} Breast: WNL Abdomen: Other Rectal: Other Integument: WNL : WNL Ortho: Other ENT: WNL - Impression Pt. Evaluated Today:Candidate for Anesthesia & Procedure: Yes - Date & Time Time: 08:18 Short Stay Discharge - Short Stay Discharge Admitting Diagnosis/Reason for Visit: DYSPEPSIA Disposition: HOME/ ROUTINE
[2018-06-02] MEDS ORDERED: Propofol 10 mg/ml Inj (20 ML) ONE (08:27)
[2018-06-02] MEDS ORDERED: Belladonna-Phenobarbital PO ONE (08:55)
[2018-06-02 08:59] VITALS: TEMP 97.9
[2018-06-02 10:02] VITALS: BP 124/69; PULSE 65; RESP 16; O2SAT 98
== END 2018-06-02 09:50 | disposition home or self-care (01) ==
LOC: C.ENDO 06:45
PROVIDERS: ATTEND Specialist
DX: K25.9 Gastric ulcer, unspecified as acute or chronic, without hemorrhage or perforation (principal); K44.9 Diaphragmatic hernia without obstruction or gangrene; K20.9 Esophagitis, unspecified; I25.10 Atherosclerotic heart disease of native coronary artery without angina pectoris; I10 Essential (primary) hypertension
CPT/HCPCS: 43239; 88305; J2001; J2704

== ENCOUNTER 2018-06-09 07:14 | Day surgery (SDC) | payer MEDICARE ==
[2018-06-01 09:48] VITALS: BMI 24.7
[2018-06-09 07:56] VITALS: PULSE 75; RESP 19; TEMP 97.8; O2SAT 98
--- NOTE | 2018-06-09 09:47 | CP.SDSHP ---
Same Day Surgery H & P - History Proposed Procedure: COLONSCOPY Pre-Op Diagnosis: SEE NOTES - Previous Medical/Surgical History Cardiac: Hypertension Endocrine/Metabolic: Other Neuro: Backaches Pain: 4.Moderate Pain - Allergies Allergies: Allergies No Known Allergies Allergy (Verified 04/29/18 06:11) - Physical Exam General Appearance: N Vital Signs: Vital Signs 06/09/18 07:52 Temperature 97.8 F Pulse Rate 75 Respiratory 19 Rate Blood Pressure 149/80 O2 Sat by Pulse 98 Oximetry Mental Status: Alert & Oriented x3 Neuro: WNL Heart: Other Lungs: WNL GI: Other - {Optional Preform as Required} Breast: WNL Abdomen: Other Rectal: Other Integument: WNL : WNL Ortho: Other ENT: WNL - Impression Pt. Evaluated Today:Candidate for Anesthesia & Procedure: Yes - Date & Time Time: 09:47 Short Stay Discharge - Short Stay Discharge Admitting Diagnosis/Reason for Visit: CHANGE IN BOWEL HABIT Disposition: HOME/ ROUTINE
[2018-06-09] MEDS ORDERED: Propofol 10 mg/ml Inj (20 ML) ONE ×2 (09:55→10:18)
[2018-06-09] MEDS ORDERED: Lidocaine Hydrochloride 5 ML INJ ONE (10:18)
[2018-06-09 11:11] VITALS: BP 126/79
== END 2018-06-09 11:38 | disposition home or self-care (01) ==
LOC: C.ENDO 07:14
PROVIDERS: ATTEND Specialist
DX: D12.0 Benign neoplasm of cecum (principal); R19.4 Change in bowel habit; K64.8 Other hemorrhoids; D12.4 Benign neoplasm of descending colon; K57.90 Diverticulosis of intestine, part unspecified, without perforation or abscess without bleeding
CPT/HCPCS: 45388; 88305; J2704